=== PATIENT | male | born 1950 | race Caucasian/White ===

== ENCOUNTER → 2016-04-09 | Outpatient (CLI) | payer OTHER ==
[~2016-04-09] MED LIST: BISO5TAB5 PO; LEVA750T PO; NEXI40CA PO; PERC5TAB6 PO; PLAV75TA38 PO; PRAV40TA2 PO; TYLENOL #3; TYLENOL #3 ELIXIR; [UNRECOGNIZED DRUG - OTHER]
[2016-04-09 17:04] LABS: BLOOD UREA NITROGEN 19 MG/DL (7-18); CREATININE FOR GFR 1.03 MG/DL (0.70-1.30); GLOMERULAR FILTRATION RATE > 60.0 (>49)
== END ==
LOC: M WUC 14:18
PROVIDERS: ATTEND Surgery Vascular Surgery
DX: I65.23 Occlusion and stenosis of bilateral carotid arteries (principal)

== ENCOUNTER → 2016-04-18 | Outpatient (CLI) | payer OTHER ==
[~2016-04-18] MED LIST changes: +ISOVUE-370 76% 100ML VIAL (Q9967) As Ordered ONE
--- NOTE | 2016-04-18 09:41 | REP ---
CT ANGIO NECK: HISTORY: Carotid stenosis. CONTRAST: Isovue 370, 75 mL. Partially calcified atherosclerotic plaques are present at the origins of the right external and internal carotid arteries. There is mild stenosis of 20% of the right internal carotid artery at its origin. There is moderate stenosis of 50% of the right internal carotid artery 14 mm from its origin. There is no significant stenosis at the origin of the right external carotid artery. Partially calcified atherosclerotic plaques are present at the origins of the left external and internal carotid arteries. There is mild stenosis of 15% of the left internal carotid artery at its origin. There is mild stenosis of 25% of the left internal carotid artery 10 mm from its origin. There is moderate stenosis of 30% of the left external carotid artery at its origin. Calcified atherosclerotic plaques are present in the cavernous internal carotid arteries. These produce at least mild stenosis. Calcified atherosclerotic plaques are present in the distal vertebral arteries at the C1-2 level and at the craniovertebral junction. There is no significant stenosis. Calcified atherosclerotic plaques are present at the origins of the left common carotid and left subclavian arteries. There is no significant stenosis. IMPRESSION: 1. Mild stenosis of 20% of the right internal carotid artery at its origin. There is moderate stenosis of 50% of the right internal carotid artery 14 mm from its origin. 2. Mild stenosis of 15% of the left internal carotid artery at its origin. There is mild stenosis of 25% of the left internal carotid artery 10 mm from its origin. Signed by Senthil Sotomayor MD 04/18/2016 09:48 A
== END ==
LOC: M RAD 07:06
PROVIDERS: ATTEND Surgery Vascular Surgery
DX: I65.23 Occlusion and stenosis of bilateral carotid arteries (principal)
CPT/HCPCS: 70498; Q9967

== ENCOUNTER → 2016-06-26 | Outpatient (REF) | payer OTHER ==
[~2016-06-26] MED LIST changes: -ISOVUE-370 76% 100ML VIAL (Q9967) As Ordered ONE
[2016-06-26 13:13] LABS: BASO % 0.8 % (0.0-1.0); EOS # 0.2 K/mm3 (0.0-0.50); EOS % 4.4 % (0.0-3.0); LARGE UNSTAINED CELL # 0.1 K/mm3 (0.0-0.4); LYMPH # 1.4 K/mm3 (1.5-4.5); LYMPH % 23.3 % (24.0-44.0); MEAN CORPUSCULAR HEMOGLOBIN 32.3 pg (27.0-33.0); MEAN CORPUSCULAR HGB CONC 32.1 g/dl (32.0-36.5); MEAN CORPUSCULAR VOLUME 100.4 fl (80.0-96.0); MONO # 0.5 K/mm3 (0.0-0.8); MONO % 9.7 % (0.0-5.0); NEUTROPHILS # 3.2 K/mm3 (1.8-7.7); NEUTROPHILS % 59.7 % (36.0-66.0); PLATELET COUNT, AUTOMATED 171 k/mm3 (150-450); WHITE BLOOD COUNT 5.4 K/mm3 (4.0-10.0)
[2016-06-26 15:52] LABS: ALBUMIN 3.9 GM/DL (3.2-5.2); ALBUMIN/GLOBULIN RATIO 1.11 (1.00-1.93); ALKALINE PHOSPHATASE 125 U/L (45-117); ALT/SGPT 30 U/L (12-78); ANION GAP 9 MEQ/L (8-16); AST/SGOT 25 U/L (15-37); BILIRUBIN,TOTAL 0.7 MG/DL (0.2-1.0); BLOOD UREA NITROGEN 10 MG/DL (7-18); CALCIUM LEVEL 8.6 MG/DL (8.8-10.2); CARBON DIOXIDE LEVEL 27 MEQ/L (21-32); CHLORIDE LEVEL 104 MEQ/L (98-107); CHOLESTEROL LEVEL 159 MG/DL (<200); CREATININE FOR GFR 1.03 MG/DL (0.70-1.30); FERRITIN 129 NG/ML (26-388); GLOMERULAR FILTRATION RATE > 60.0 (>49); GLUCOSE, FASTING 91 MG/DL (80-110); PERCENT SATURATION 33.3 % (19.7-37.4); POTASSIUM SERUM 4.2 MEQ/L (3.5-5.1); SODIUM LEVEL 140 MEQ/L (136-145); TOTAL IRON BINDING CAPACITY 348 UG/DL (250-450); TOTAL PROTEIN 7.4 GM/DL (6.4-8.2); TRIGLYCERIDES LEVEL 77 MG/DL (<150)
== END ==
LOC: M SFHCPLAZ 08:41
PROVIDERS: ATTEND Family Medicine
DX: D51.9 Vitamin B12 deficiency anemia, unspecified (principal); E78.2 Mixed hyperlipidemia; R73.01 Impaired fasting glucose

== ENCOUNTER → 2016-11-17 | Outpatient (REF) | payer OTHER ==
[~2016-11-17] MED LIST changes: -LEVA750T PO; +LEVA750T7 PO; +PERC5TAB12 PO; -PERC5TAB6 PO; +PLAV1TAB2 PO; -PLAV75TA38 PO
[2016-11-17 12:59] LABS: BASO # 0.1 10^3/uL (0.0-0.2); BASO % 0.8 % (0.0-1.0); EOS # 0.3 10^3/uL (0.0-0.50); EOS % 4.5 % (0.0-3.0); LYMPH # 1.4 10^3/uL (1.5-4.5); LYMPH % 20.9 % (24.0-44.0); MEAN CORPUSCULAR HEMOGLOBIN 32.8 pg (27.0-33.0); MEAN CORPUSCULAR HGB CONC 33.4 g/dl (32.0-36.5); MEAN CORPUSCULAR VOLUME 98.3 fl (80.0-96.0); MONO # 0.6 10^3/uL (0.0-0.8); MONO % 9.9 % (0.0-5.0); NEUTROPHILS # 4.1 10^3/uL (1.8-7.7); NEUTROPHILS % 63.6 % (36.0-66.0); PLATELET COUNT, AUTOMATED 173 10^3/uL (150-450); WHITE BLOOD COUNT 6.5 10^3/uL (4.0-10.0)
== END ==
LOC: M SFHCPLAZ 08:23
PROVIDERS: ATTEND Family Medicine
DX: D51.9 Vitamin B12 deficiency anemia, unspecified (principal); E78.2 Mixed hyperlipidemia; R73.01 Impaired fasting glucose; Z12.5 Encounter for screening for malignant neoplasm of prostate
CPT/HCPCS: 36415; 80061; 82550; 82607; 83036; 85025; 86140; G0103

== ENCOUNTER → 2017-06-12 | Outpatient (CLI) | payer MEDICARE, OTHER ==
[2017-06-12 17:14] LABS: BLOOD UREA NITROGEN 14 MG/DL (7-18)
[2017-06-12 17:14] LABS: CREATININE FOR GFR 0.93 MG/DL (0.70-1.30); GLOMERULAR FILTRATION RATE > 60.0 (>49)
== END ==
LOC: M WUC 15:29
DX: I70.213 Atherosclerosis of native arteries of extremities with intermittent claudication, bilateral legs (principal)
CPT/HCPCS: 82565

== ENCOUNTER → 2017-06-24 | Outpatient (CLI) | payer MEDICARE, OTHER ==
[~2017-06-24] MED LIST changes: -BISO5TAB5 PO; +ISOVUE-370 76% 100ML VIAL (Q9967) As Ordered; -LEVA750T7 PO; -NEXI40CA PO; -PERC5TAB12 PO; -PLAV1TAB2 PO; -PRAV40TA2 PO; -TYLENOL #3; -TYLENOL #3 ELIXIR; -[UNRECOGNIZED DRUG - OTHER]
== END ==
LOC: M RAD 13:26
DX: I70.213 Atherosclerosis of native arteries of extremities with intermittent claudication, bilateral legs (principal)
CPT/HCPCS: Q9967

== ENCOUNTER → 2017-08-09 | Outpatient (CLI) | payer MEDICARE, OTHER ==
[2017-08-09 15:47] LABS: BASO # 0.1 10^3/uL (0.0-0.2); BASO % 1.3 % (0.0-1.0); EOS # 0.2 10^3/uL (0.0-0.50); HEMATOCRIT 45.1 % (42.0-52.0); IMMATURE GRANULOCYTE % 0.4 % (0-3.0); LYMPH # 1.2 10^3/uL (1.5-4.5); LYMPH % 26.5 % (24.0-44.0); MEAN CORPUSCULAR HEMOGLOBIN 32.6 pg (27.0-33.0); MEAN CORPUSCULAR HGB CONC 33.3 g/dl (32.0-36.5); MONO # 0.5 10^3/uL (0.0-0.8); MONO % 11.3 % (0.0-5.0); NEUTROPHILS # 2.6 10^3/uL (1.8-7.7); NEUTROPHILS % 55.5 % (36.0-66.0); PLATELET COUNT, AUTOMATED 161 10^3/uL (150-450); WHITE BLOOD COUNT 4.6 10^3/uL (4.0-10.0)
[2017-08-09 15:57] LABS: ANION GAP 4 MEQ/L (8-16); BLOOD UREA NITROGEN 14 MG/DL (7-18); CALCIUM LEVEL 8.9 MG/DL (8.8-10.2); CARBON DIOXIDE LEVEL 29 MEQ/L (21-32); CHLORIDE LEVEL 107 MEQ/L (98-107); CREATININE FOR GFR 0.98 MG/DL (0.70-1.30); GLOMERULAR FILTRATION RATE > 60.0 (>49); GLUCOSE, FASTING 111 MG/DL (70-100); INR 0.93; POTASSIUM SERUM 4.8 MEQ/L (3.5-5.1); PROTHROMBIN TIME 12.5 SECONDS (12.4-14.5); SODIUM LEVEL 140 MEQ/L (136-145)
== END ==
LOC: M WUC 09:23
DX: Z01.818 Encounter for other preprocedural examination (principal); I70.213 Atherosclerosis of native arteries of extremities with intermittent claudication, bilateral legs; D69.8 Other specified hemorrhagic conditions

== ENCOUNTER → 2017-08-09 | Outpatient (CLI) | payer MEDICARE, OTHER ==
[2017-08-09 15:46] LABS: BASO # 0.1 10^3/uL (0.0-0.2); BASO % 1.3 % (0.0-1.0); EOS # 0.2 10^3/uL (0.0-0.50); EOS % 4.4 % (0.0-3.0); HEMATOCRIT 45.8 % (42.0-52.0); HEMOGLOBIN 15.3 g/dl (13.5-17.5); IMMATURE GRANULOCYTE % 0.2 % (0-3.0); LYMPH # 1.1 10^3/uL (1.5-4.5); LYMPH % 24.8 % (24.0-44.0); MEAN CORPUSCULAR HEMOGLOBIN 32.7 pg (27.0-33.0); MEAN CORPUSCULAR HGB CONC 33.4 g/dl (32.0-36.5); MEAN CORPUSCULAR VOLUME 97.9 fl (80.0-96.0); MONO # 0.6 10^3/uL (0.0-0.8); MONO % 12.1 % (0.0-5.0); NEUTROPHILS # 2.6 10^3/uL (1.8-7.7); NEUTROPHILS % 57.2 % (36.0-66.0); PLATELET COUNT, AUTOMATED 166 10^3/uL (150-450); RED BLOOD COUNT 4.68 10^6/uL (4.30-6.10); WHITE BLOOD COUNT 4.6 10^3/uL (4.0-10.0)
[2017-08-09 15:51] LABS: HEMATOCRIT 45.8 % (42.0-52.0)
[2017-08-09 16:07] LABS: C REACTIVE PROTEIN QUANTITATIV 1.06 MG/DL (0.00-0.30); CHOLESTEROL LEVEL 144 MG/DL (<200); CHOLESTEROL RISK RATIO 3.428 (<5); CPK CREATINE PHOSPHOKINASE 100 U/L (39-308); ESTIMATED AVERAGE GLUCOSE 128 MG/DL (60-110); HDL CHOLESTEROL 42 MG/DL (>40); HEMOGLOBIN A1c 6.1 %; LDL CHOLESTEROL 88.6 MG/DL (<100); NON-HDL-C 102 MG/DL; TRIGLYCERIDES LEVEL 67 MG/DL (<150)
[2017-08-10 09:57] LABS: VITAMIN B12 LEVEL 274 PG/ML (247-911)
[2017-08-10 10:33] LABS: CONTROL LINE HPYORI INT CTR LINE PRESENT; H PYLORI QUALITATIVE IgG NEGATIVE (NEGATIVE)
[2017-08-11 11:21] LABS: PRETREATED FOLATE FOR RBCFOL 9.4 NG/ML
== END ==
LOC: M WUC 09:28
DX: Z01.818 Encounter for other preprocedural examination (principal); D51.9 Vitamin B12 deficiency anemia, unspecified; E78.2 Mixed hyperlipidemia; R73.01 Impaired fasting glucose; K21.9 Gastro-esophageal reflux disease without esophagitis; I70.213 Atherosclerosis of native arteries of extremities with intermittent claudication, bilateral legs; D69.8 Other specified hemorrhagic conditions
CPT/HCPCS: 82550

== ENCOUNTER → 2017-12-19 | Outpatient (CLI) | payer MEDICARE, OTHER ==
[2017-12-19 15:11] LABS: BASO # 0.1 10^3/uL (0.0-0.2); BASO % 0.8 % (0.0-1.0); EOS # 0.3 10^3/uL (0.0-0.50); EOS % 4.4 % (0.0-3.0); HEMATOCRIT 47.2 % (42.0-52.0); HEMOGLOBIN 15.9 g/dl (13.5-17.5); IMMATURE GRANULOCYTE % 0.3 % (0-3.0); LYMPH # 1.4 10^3/uL (1.5-4.5); MEAN CORPUSCULAR HEMOGLOBIN 33.5 pg (27.0-33.0); MEAN CORPUSCULAR HGB CONC 33.7 g/dl (32.0-36.5); MEAN CORPUSCULAR VOLUME 99.4 fl (80.0-96.0); MONO # 0.6 10^3/uL (0.0-0.8); MONO % 9.6 % (0.0-5.0); NEUTROPHILS # 3.6 10^3/uL (1.8-7.7); NEUTROPHILS % 60.9 % (36.0-66.0); PLATELET COUNT, AUTOMATED 165 10^3/uL (150-450); RED BLOOD COUNT 4.75 10^6/uL (4.30-6.10); RED CELL DISTRIBUTION WIDTH 12.6 % (11.5-14.5); RETIC HEMOGLOBIN EQUIVALENT 36.2 pg (24-36); RETICULOCYTE # 56.1 10^9/L (17-77); RETICULOCYTE % 1.2 % (0.5-1.5); WHITE BLOOD COUNT 5.9 10^3/uL (4.0-10.0)
[2017-12-19 15:14] LABS: APPEARANCE, URINE CLEAR (CLEAR); BACTERIA, URINE AUTO NEGATIVE (NEGATIVE); BILIRUBIN, URINE AUTO NEGATIVE (NEGATIVE); BLOOD, URINE BLOOD NEGATIVE (NEGATIVE); COLOR, URINE YELLOW (YELLOW); GLUCOSE, URINE (UA) AUTO NEGATIVE (NEGATIVE); KETONE, URINE AUTO NEGATIVE (NEGATIVE); LEUKOCYTE ESTERASE, URINE AUTO NEGATIVE (NEGATIVE); MUCUS, URINE SMALL (NEGATIVE); NITRITE, URINE AUTO NEGATIVE (NEGATIVE); PROTEIN, URINE AUTO NEGATIVE (NEGATIVE); RBC, URINE AUTO 2 /HPF (0-3); SPECIFIC GRAVITY URINE AUTO 1.016 (1.002-1.035); SQUAMOUS EPITHELIAL CELL UR AU 0 /HPF (0-6); UROBILINOGEN, URINE AUTO 0.2 mg/dL (0.0-2.0); WBC, URINE AUTO 0 /HPF (0-3)
[2017-12-19 15:20] LABS: ALBUMIN 4.1 GM/DL (3.2-5.2); ALBUMIN/GLOBULIN RATIO 1.14 (1.00-1.93); ALKALINE PHOSPHATASE 111 U/L (45-117); ALT/SGPT 27 U/L (12-78); ANION GAP 7 MEQ/L (8-16); AST/SGOT 21 U/L (7-37); BILIRUBIN,TOTAL 0.6 MG/DL (0.2-1.0); BLOOD UREA NITROGEN 12 MG/DL (7-18); CALCIUM LEVEL 9.3 MG/DL (8.8-10.2); CARBON DIOXIDE LEVEL 27 MEQ/L (21-32); CHLORIDE LEVEL 107 MEQ/L (98-107); CREATININE FOR GFR 0.87 MG/DL (0.70-1.30); GLOMERULAR FILTRATION RATE > 60.0 (>49); GLUCOSE, FASTING 105 MG/DL (70-100); POTASSIUM SERUM 4.9 MEQ/L (3.5-5.1); PSA SCREENING 0.18 NG/ML (< 4.0); SODIUM LEVEL 141 MEQ/L (136-145); TOTAL PROTEIN 7.7 GM/DL (6.4-8.2)
[2017-12-19 15:26] LABS: ESTIMATED AVERAGE GLUCOSE 128 MG/DL (60-110); HEMOGLOBIN A1c 6.1 %
[2017-12-19 16:03] LABS: MALB URINE SIEMENS 17.7 MG/L
[2017-12-19 16:08] LABS: MAU/CREAT RATIO 11.3 MCG/MG (0.0-30.0)
[2017-12-22 13:45] LABS: ALBUMIN 4.35 GM/DL (3.29-5.55); ALBUMIN % 56.5 % (55.8-66.1); ALPHA-1-GLOBULINS 0.39 GM/DL (0.17-0.41); ALPHA-2-GLOBULINS 0.74 GM/DL (0.42-0.99); ALPHA-2-GLOBULINS % 9.6 % (7.1-11.8); BETA-1-GLOBULINS 0.45 GM/DL (0.28-0.60); BETA-1-GLOBULINS % 5.8 % (4.7-7.2); BETA-2-GLOBULINS 0.35 GM/DL (0.19-0.55); BETA-2-GLOBULINS % 4.5 % (3.2-6.5); GAMMA GLOBULIN % 18.6 % (11.1-18.8); GAMMA GLOBULINS 1.43 GM/DL (0.65-1.58)
[2017-12-22 14:38] LABS: INSULIN LEVEL 15.8 uIU/mL (2.6-24.9)
== END ==
LOC: M WUC 10:27
DX: E53.8 Deficiency of other specified B group vitamins (principal); R73.01 Impaired fasting glucose; Z12.5 Encounter for screening for malignant neoplasm of prostate
CPT/HCPCS: 83525

== ENCOUNTER → 2018-06-19 | Outpatient (CLI) | payer MEDICARE, OTHER ==
[~2018-06-19] MED LIST changes: +BISO5TAB5 PO; -ISOVUE-370 76% 100ML VIAL (Q9967) As Ordered; +LEVA750T7 PO; +NEXI40CA PO; +PERC5TAB12 PO; +PLAV1TAB2 PO; +PRAV40TA2 PO; +TYLENOL #3; +TYLENOL #3 ELIXIR; +[UNRECOGNIZED DRUG - OTHER]
[2018-06-19 19:26] LABS: BASO # 0.1 10^3/uL (0.0-0.2); EOS # 0.3 10^3/uL (0.0-0.50); EOS % 4.5 % (0.0-3.0); HEMATOCRIT 47.9 % (42.0-52.0); HEMOGLOBIN 15.7 g/dl (13.5-17.5); LYMPH # 1.5 10^3/uL (1.5-4.5); LYMPH % 26.6 % (24.0-44.0); MEAN CORPUSCULAR HEMOGLOBIN 33.4 pg (27.0-33.0); MEAN CORPUSCULAR HGB CONC 32.8 g/dl (32.0-36.5); MEAN CORPUSCULAR VOLUME 101.9 fl (80.0-96.0); MONO # 0.5 10^3/uL (0.0-0.8); NEUTROPHILS # 3.4 10^3/uL (1.8-7.7); NEUTROPHILS % 59.4 % (36.0-66.0); PLATELET COUNT, AUTOMATED 183 10^3/uL (150-450); WHITE BLOOD COUNT 5.7 10^3/uL (4.0-10.0)
[2018-06-19 19:38] LABS: HEMATOCRIT 47.9 % (42.0-52.0)
[2018-06-19 19:39] LABS: CHOLESTEROL RISK RATIO 4.142 (<5); FREE T4 1.01 NG/DL (0.76-1.46); THYROID STIMULATING HORMONE 1.15 uIU/ML (0.358-3.740)
[2018-06-19 20:34] LABS: HEMOGLOBIN A1c 6.2 %
[2018-06-21 09:37] LABS: TOTAL 25(OH) VITAMIN D 18.8 NG/ML (30.0-100.0)
== END ==
LOC: M WUC 09:15
PROVIDERS: ATTEND Family Medicine
DX: E53.8 Deficiency of other specified B group vitamins (principal); E78.2 Mixed hyperlipidemia; R73.01 Impaired fasting glucose; E55.9 Vitamin D deficiency, unspecified

== ENCOUNTER → 2018-07-06 | Outpatient (CLI) | payer MEDICARE, OTHER ==
--- NOTE | 2018-07-06 09:12 | REP ---
Low-dose lung screening CT: The study is performed without IV contrast. Images are presented at lung windowing only. Comparisons are 11/08/2015, 02/10/2011 and 04/12/2009. No lung nodules or masses are identified. This is unchanged from the comparison studies. There are curvilinear densities in the right middle lobe, unchanged from 04/12/2009, compatible with chronic parenchymal scarring. The bilateral infiltrates identified on 11/08/2015 have resolved. There are no new acute infiltrates. There are numerous bulla throughout the lung dennis bilaterally, unchanged. The the patient has a known stable left adrenal nodule. This is not optimally demonstrated on the study today with images presented at lung windowing only. Impression: There are no lung nodules or masses. There is chronic stable parenchymal scarring in the right middle lobe, unchanged. The previous bilateral infiltrates have resolved. Known stable left adrenal nodule, suboptimally demonstrated on the study today. Numerous chronic bulla bilaterally. Category one low-dose lung screening CT. The probability of malignancy is less than 1%. Depending on risk factors, follow-up annual low-dose lung screening CT is recommended. Electronically Signed by Luis Tsang MD 07/06/2018 09:03 A
== END ==
LOC: M RAD 07:44
PROVIDERS: ATTEND Family Medicine
DX: Z12.2 Encounter for screening for malignant neoplasm of respiratory organs (principal); R91.1 Solitary pulmonary nodule; E27.9 Disorder of adrenal gland, unspecified; Z87.891 Personal history of nicotine dependence

== ENCOUNTER 2018-08-10 21:51 | Emergency (ER) | payer MEDICARE, OTHER ==
[~2018-08-10] VITALS: Ht 172.7 cm; Wt 79.0 kg
[2018-08-10] MEDS ORDERED: NITROGLYCERIN 0.4 MG SUBL TABLET As Ordered ONE (22:07)
[2018-08-10] MEDS: NITROGLYCERIN 0.4 MG SUBL TABLET SL PRN ×3 (22:08→22:50)
[2018-08-10] MEDS ORDERED: ASPIRIN 81 MG CHEW TABLET PO ONE (22:15)
[2018-08-10 22:22] LABS: BASO # 0.1 10^3/uL (0.0-0.2); BASO % 1.3 % (0.0-1.0); EOS # 0.2 10^3/uL (0.0-0.50); EOS % 3.2 % (0.0-3.0); HEMATOCRIT 44.1 % (42.0-52.0); HEMOGLOBIN 14.8 g/dl (13.5-17.5); LYMPH # 2.3 10^3/uL (1.5-4.5); LYMPH % 33.5 % (24.0-44.0); MEAN CORPUSCULAR HEMOGLOBIN 33.7 pg (27.0-33.0); MEAN CORPUSCULAR HGB CONC 33.6 g/dl (32.0-36.5); MEAN CORPUSCULAR VOLUME 100.5 fl (80.0-96.0); MONO # 0.7 10^3/uL (0.0-0.8); MONO % 9.6 % (0.0-5.0); NEUTROPHILS # 3.6 10^3/uL (1.8-7.7); PLATELET COUNT, AUTOMATED 162 10^3/uL (150-450); RED BLOOD COUNT 4.39 10^6/uL (4.30-6.10); WHITE BLOOD COUNT 6.9 10^3/uL (4.0-10.0)
[2018-08-10] MEDS ORDERED: HEPARIN DRIP 25,000 UNITS in APPROPRIATE DILUENT 1 EA IV SCH (22:31)
[2018-08-10 22:32] LABS: INR 1.01; PROTHROMBIN TIME 13.4 SECONDS (12.1-14.4)
[2018-08-10 22:33] LABS: PARTIAL THROMBOPLASTIN TIME 27.7 SECONDS (25.4-37.6)
[2018-08-10] MEDS ORDERED: HEPARIN SOD (PORCINE) 5000 UNITS/ML VIAL IV ONE (22:45)
[2018-08-10 22:50] VITALS: BP 138/70
[2018-08-10 22:51] LABS: ALBUMIN 3.6 GM/DL (3.2-5.2); ALT/SGPT 26 U/L (12-78); BILIRUBIN,DIRECT 0.1 MG/DL (0.0-0.2); BILIRUBIN,TOTAL 0.4 MG/DL (0.2-1.0); BLOOD UREA NITROGEN 16 MG/DL (7-18); CALCIUM LEVEL 8.8 MG/DL (8.8-10.2); CARBON DIOXIDE LEVEL 26 MEQ/L (21-32); CHLORIDE LEVEL 110 MEQ/L (98-107); CK-MB VALUE MASS 1.4 NG/ML (<3.6); CPK CREATINE PHOSPHOKINASE 94 U/L (39-308); CREATININE FOR GFR 1.03 MG/DL (0.70-1.30); GLOMERULAR FILTRATION RATE > 60.0 (>49); GLUCOSE, FASTING 129 MG/DL (70-100); LIPASE 272 U/L (73-393); MB/CK RELATIVE INDEX 1.49 (< OR =4); POTASSIUM SERUM 3.8 MEQ/L (3.5-5.1); SODIUM LEVEL 142 MEQ/L (136-145); TOTAL PROTEIN 7.2 GM/DL (6.4-8.2)
[2018-08-10 23:35] VITALS: BP 152/69
--- NOTE | 2018-08-11 07:44 | REP ---
Portable chest, 10:14 p.m., single AP view with the patient upright: Comparison is 11/16/2015. The lung dennis are clear. The cardiac size is normal. The sydnie, mediastinum, and skeletal structures are unremarkable. Impression: Negative portable chest. No interval change. Electronically Signed by Luis Tsang MD 08/11/2018 07:36 A
--- NOTE | 2018-08-11 19:24 | ECGEPIP ---
[facility] - ED Test Date: 2018-08-10 Pat Name: JESSICA GONZALES Department: Room: - Gender: Male Supervisor Tower: [facility] : 1950 Requested By: STEFANI Begum Order Number: [id number] Reading MD: Elly Romo Measurements Intervals [place] Rate: 53 P: 64 GA: 174 QRS: 31 QRSD: 118 T: 8 QT: 410 QTc: 388 Interpretive Statements SINUS BRADYCARDIA INCOMPLETE RIGHT BUNDLE BRANCH BLOCK ST DEPRESSION, CONSIDER SUBENDOCARDIAL INJURY COMPARED 11/09/15 CLINICAL CORRELATION Electronically Signed on 08-11-2018 19:24:51 EDT by Elly Romo
== END 2018-08-10 23:39 | disposition short-term general hospital (02) ==
LOC: M ED 21:51
DX: I24.9 Acute ischemic heart disease, unspecified (principal); I21.9 Acute myocardial infarction, unspecified; I25.10 Atherosclerotic heart disease of native coronary artery without angina pectoris; R00.1 Bradycardia, unspecified; I10 Essential (primary) hypertension; E78.5 Hyperlipidemia, unspecified; J44.9 Chronic obstructive pulmonary disease, unspecified; C18.9 Malignant neoplasm of colon, unspecified; F17.210 Nicotine dependence, cigarettes, uncomplicated; Z79.02 Long term (current) use of antithrombotics/antiplatelets; Z79.891 Long term (current) use of opiate analgesic; Z91.030 Bee allergy status; Z91.041 Radiographic dye allergy status; Z95.820 Peripheral vascular angioplasty status with implants and grafts

== ENCOUNTER → 2018-08-23 | Outpatient (REF) | payer MEDICARE, OTHER ==
[2018-08-23 13:29] LABS: BASO # 0.1 10^3/uL (0.0-0.2); BASO % 1.4 % (0.0-1.0); EOS # 0.3 10^3/uL (0.0-0.50); EOS % 4.5 % (0.0-3.0); HEMATOCRIT 46.4 % (42.0-52.0); HEMOGLOBIN 15.3 g/dl (13.5-17.5); LYMPH # 1.8 10^3/uL (1.5-4.5); LYMPH % 31.6 % (24.0-44.0); MONO # 0.7 10^3/uL (0.0-0.8); MONO % 11.9 % (0.0-5.0); NEUTROPHILS # 2.9 10^3/uL (1.8-7.7); NEUTROPHILS % 50.1 % (36.0-66.0); PLATELET COUNT, AUTOMATED 188 10^3/uL (150-450); RED BLOOD COUNT 4.64 10^6/uL (4.30-6.10); WHITE BLOOD COUNT 5.8 10^3/uL (4.0-10.0)
== END ==
LOC: M SFHCPLAZ 11:22
PROVIDERS: ATTEND Family Medicine
DX: D75.89 Other specified diseases of blood and blood-forming organs (principal)

== ENCOUNTER → 2018-11-22 | Outpatient (RCR) | payer MEDICARE, OTHER ==
--- NOTE | 2018-10-29 09:19 | CARECAPL ---
Assessment Account #s: Initial Assessment General Diagnoses: CABG Date of event: Sep 17, 2018 Physician: Alexandre Quinteros MD Allergies: Coded Allergies: Chantix (Verified Allergy, Intermediate, 10/29/18) causes aggressive behavior Contrast Media (Verified Allergy, Intermediate, HIVES, 08/10/18) bee venom protein (honey bee) (Verified Allergy, Unknown, 08/10/18) Date Entered Program: Oct 29, 2018 Risk strat for cardiac event: High Exercise Stages of change: Contemplate Exercise Prescription Plan educate on Cardiovascular disease and increase endurance, strength and flexibility through monitored exercise. Modalities initiated: Treadmill (will add speed 2.0 for 10 minutes), Nustep (will add Level One for 10 minutes), Arm Aerometer (will add resistance of 1 for 8 minutes), Dumbells (will add 1lb weights 2 sets for 10 reps), Recumbent Bike (will add resistance of 1 for 5 minutes) Frequency: 2-3 Duration (Minutes) 30 - 60 minutes total exercise a day. 15 - 20 work intervals in minutes. PRN rest intervals in minutes. Functional Capacity Goal Sustained Metabolic Equivalent of a task (MET) goal of 2.5-3.5 for 15-20 minutes. Intensity: 3-Moderate Progression (METS) Increase by: 0.5 METS every: 3-5 sessions Target Heart Rate rest +35-40 per beta travon therapy Resistance Training: Yes Weight (pounds): 1 Reps: 8-12 Medications Scheduled Aspirin (Aspir 81), 81 MG PO DAILY, (Reported) Clopidogrel Bisulfate (Plavix), 75 MG PO QPM, (Reported) Cyanocobalamin (Vitamin B-12) (Vitamin B-12), 1 TAB PO DAILY, (Reported) Esomeprazole Magnesium (Nexium), 40 MG PO QPM, (Reported) Ferrous Sulfate (Iron), 1 TAB PO DAILY, (Reported) Folic Acid (Folic Acid), 1 TAB PO DAILY, (Reported) Metformin HCl (Metformin HCl), 1 TAB PO DAILY, (Reported) Metoprolol Succinate (Metoprolol Succinate), 25 MG PO DAILY, (Reported) Rosuvastatin Calcium (Rosuvastatin Calcium), 1 TAB PO DAILY, (Reported) Discontinued Medications Bisoprolol Fumarate (Bisoprolol Fumarate), 2.5 MG PO QPM, (Reported) Discontinued Reason: Pt states not taking Levofloxacin (Levaquin), 750 MG PO DAILY@06 Discontinued Reason: Pt states not taking Oxycodone HCl/Acetaminophen (Percocet 5-325 mg Tablet), 1 TAB PO Q6H PRN for PAIN, (Reported) Discontinued Reason: Pt states not taking Pravastatin Sodium (Pravastatin Sodium), 40 MG PO QPM, (Reported) Discontinued Reason: Pt states not taking Intervention Home exercise: Type (walking 2 miles), Frequency (5 times a week) Target Goals Individual exercise Rx (1) BP 140/90 or 130/80 if DM or CKD (1) Aerobic active 30+min 5 days per week (1) Nutrition Date: Oct 29, 2018 Assessment: Initial Assessment Lipids Total Cholesterol (136), High Density Lipids (HDL) (39), Low Density Lipids (LDL) (92), Triglycerides (113), Lipid med/supplement (Crestor) Lipid- med/supplement Crestor Diabetes Diabetes: Yes Fasting Blood Sugar: 90 HbA1c (%): 6.2 Diabetes medication Metformin Monitor Blood Sugar at home: Yes Frequency Daily Weight Management Weight (lbs): 158.8 Height (inches): 68 Waist Circumference (Inches): 32 BMI: 24.02 Special Diet: low salt Vitamin/Supplements: Other (iron and folic acid) Alcohol: none Diet Access Tool: Rate your plate Score: 26 Intervention Alarm Signaler Consult: No Nurse/patient discussion: No Dietary Goals Healthier food choices Diet Class: No Referral to Diabetes education: No Referral to lipid clinic: No Referral to weight mangement p: No Target goal LDL-C<100 if triglycerides are >200 Non-HDL-C should be <130 (1) LDL-C<70 for high risk patients (4) HbA1c<7% (1) BMI<25 Waist cir<40in M/<35in F (1) Education Date: Oct 29, 2018 Assessment: Initial Assessment Learning Barriers: hearing (hard of hearing) Knowledge Test Score: 10 Stages of change: Contemplate Family Support: Yes Tobacco use: No Quit: <6 months ( started 40+ years ago) Tobacco Use Date quit: Aug 11, 2018 Smokeless tobacco: No Intervention Referral to smoking cessation: Yes Individual education and couns: No Tobacco Adjunct: No Education class schedule given: No Attended education classes: No Target Goals Complete cessation of tobacco use (1). Psychosocial Date: Oct 29, 2018 Assessment: Initial Assessment Psych Test (Initial/Discharge) Tool Used: Other (depression screening) Score: 1 Intervention Physician Consult: No Physician Referral: No (Dr. Aranda notified of depression screening) Psychotropic medication None Target Goal Assess presence or absence of depression using a valid screening tool (1). Maximize coping skills (2). Positive support system (2). Patient/Program Goal Preventative Medication: Yes Aspirin, Yes Clopidogrel, Yes Beta blockade, Yes Statin/OTR lipid Lowering Fall Risk Assess: Yes (no fall risk) Provider Assessment Provider Assessment: Proceed with rehab Gladis Benitez RN Oct 29, 2018 09:19
[~2018-11-22] MED LIST changes: +ASPI81TA85 PO; +B-12100T2 PO; -BISO5TAB5 PO; +BISO5TAB9 PO; +FOLI1TAB11 PO; +IRON325T9 PO; +METF500T13 PO; +METO1TAB32 PO; +ROSU40TA4 PO
--- NOTE | 2018-11-22 11:14 | CARECAPL ---
Assessment Account #s: Re-Assessment I General Diagnoses: CABG Date of event: Sep 17, 2018 Physician: Alexandre Quinteros MD Allergies: Coded Allergies: Contrast Media (Verified Allergy, Intermediate, HIVES, 08/10/18) varenicline (Verified Allergy, Intermediate, 10/29/18) causes aggressive behavior bee venom protein (honey bee) (Verified Allergy, Unknown, 08/10/18) Date Entered Program: Oct 29, 2018 Exercise Date: Nov 22, 2018 Assessment: Re-Assessment I Stages of change: Contemplate Exercise Prescription Plan educate on cardiovascular disease and increase endurance, flexibility and strength through monitored exercise program. Modalities initiated: Cardio-Strider (resistance of 3 for 15 minutes mets 2.6 RPE 2.5), Nustep (resistance of 4 for 15 minutes mets 3.1 RPE 2.5), Arm Aerometer (resistance of 4.5 for 10 minutes mets 4.5 rpe 3), Dumbells (7lbs 1 set 15 reps. RPE 2.5) Frequency: 3 Duration (Minutes) 30 - 60 minutes total exercise a day. 15 - 20 work intervals in minutes. PRN rest intervals in minutes. Functional Capacity Goal Sustained Metabolic Equivalent of a task (MET) goal of 4.5-5.5 for 15-20 minutes. Intensity: 3-Moderate Progression (METS) Increase by: 0.5 METS every: 3-5 sessions Angina with ex: No Target Heart Rate rest + 35-40 per beta travon therapy. Resistance Training: Yes Weight (pounds): 7 Reps: 12-15 Hypertension: Yes Hypertension controlled with: Medication Resting 146/90 Peak Exercise BP 170/100 Meds metoprolol succinate Medications Scheduled Aspirin (Aspir 81), 81 MG PO DAILY, (Reported) Clopidogrel Bisulfate (Plavix), 75 MG PO QPM, (Reported) Cyanocobalamin (Vitamin B-12) (Vitamin B-12), 1 TAB PO DAILY, (Reported) Esomeprazole Magnesium (Nexium), 40 MG PO QPM, (Reported) Ferrous Sulfate (Iron), 1 TAB PO DAILY, (Reported) Folic Acid (Folic Acid), 1 TAB PO DAILY, (Reported) Metformin HCl (Metformin HCl), 1 TAB PO DAILY, (Reported) Metoprolol Succinate (Metoprolol Succinate), 25 MG PO DAILY, (Reported) Rosuvastatin Calcium (Rosuvastatin Calcium), 1 TAB PO DAILY, (Reported) Current BP 146/90 Med Change: No Intervention Education: Self pulse (Patient able to take pulse independently.), Ex safety (patient described drink plenty of water and comfortable clothing. ), S/S to report (Patient reports chest pain, excessive sweating and n/v to MD.), Low NA diet (patient verbalized no canned vegetables or frozen vegetables with additives. ), BP medication (Patient was able to describe the purpose of metoprolol ex. lower bp and reduce pulse. ), RPE Scale (uses independently), Equipment orientation (very little verbal cueing with equipment), warm up/cool down (independently completes), Understand BP (Discussed low sodium diet and exercise to decrease BP.), Physical Active (Patient stated to stay physical active to help with BP, HDL and to increase endurance. ) Education Goals Met: No (will continue to reinforce education.) Target Goals Individual exercise Rx (1) BP 140/90 or 130/80 if DM or CKD (1) Aerobic active 30+min 5 days per week (1) Nutrition Date: Nov 22, 2018 Assessment: Re-Assessment I Stages of change: Contemplate Med Change: No Medication Change: No Random Blood Sugar: 113 Current Weight (pounds): 161 Weight Goal at goal weight. 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 Diet Class: Yes Education S&S hypo/hyper glycemia (patient able to describe sweating, hunger and malasie as hypo. he described excessive thirst, frequent urination and blurred vision as hyperglycemia ), Relate Diabetes in CAD (patient stated that uncontrolled glucoses can cause arteries to block. ), Eating Healthy (patient described eating whole grains, fruits and vegetables to eat healthy. ) Education Goals Met: No (will continue to reinforce education.) Target goal LDL-C<100 if triglycerides are >200 Non-HDL-C should be <130 (1) LDL-C<70 for high risk patients (4) HbA1c<7% (1) BMI<25 Waist cir<40in M/<35in F (1) Education Date: Nov 22, 2018 Assessment: Re-Assessment I Stages of change: Contemplate Family Support: Yes Intervention Education: tobacco triggers (tobacco triggers are smelling of smoke, behaviors such as smoking after a meal. ), CAD (patient describes how smoking increase CAD by constricting blood vessels.), Risk factors (patient stated risk factors of smoking, over weight and sedentary life style risk factors for CAD.), med compliance (patient states he should take his medication as prescribed to low the risk of CAD.), cardiac A&P (patient was able to explain how the chambers in the heart work. ), Angina S/S (patient described chest pain while exercising and stops during rest is angina. ), Sexuality (patient states no sex until released by MD. ) Education Goals Met: No (will continue to reinforce education.) Target Goals Complete cessation of tobacco use (1). Psychosocial Date: Nov 22, 2018 Assessment: Re-Assessment I Stages of change: Contemplate Med Change: No Stress Management Class: Yes Uses Stress Management Skills: Yes Education Education: Coping Techniques (patient describes being able to talk to about his concerns.), S/S depression (patient states withdrawal, loss of appetite and crying s/s of depression.), Relaxation Techniques (patient states he will listen to music or watch tv for relaxation. ) Education Goals Met: No (will continue to reinforce education.) Target Goal Assess presence or absence of depression using a valid screening tool (1). Maximize coping skills (2). Positive support system (2). Patient/Program Goal Preventative Medication: Yes Aspirin, Yes Clopidogrel, Yes Beta blockade, Yes Statin/OTR lipid Lowering Fall Risk Assess: Yes (no fall risk) Provider Assessment Session Number: 9 Provider Assessment: Proceed with rehab Gladis Benitez RN Nov 22, 2018 11:14
== END ==
LOC: M CR 10-29 08:02
PROVIDERS: ATTEND Internal Medicine Cardiovascular Disease
DX: Z95.1 Presence of aortocoronary bypass graft (principal)

== ENCOUNTER 2018-12-22 10:06 | Outpatient (RCR) | payer MEDICARE, OTHER ==
--- NOTE | 2018-12-15 17:07 | CARECAPL ---
Assessment Account #s: Re-Assessment II General Diagnoses: CABG Date of event: Sep 17, 2018 Physician: Alexandre Quinteros MD Allergies: Coded Allergies: Contrast Media (Verified Allergy, Intermediate, HIVES, 08/10/18) varenicline (Verified Allergy, Intermediate, 10/29/18) causes aggressive behavior bee venom protein (honey bee) (Verified Allergy, Unknown, 08/10/18) Date Entered Program: Oct 29, 2018 Risk strat for cardiac event: Low Exercise Date: Dec 15, 2018 Assessment: Re-Assessment II Stages of change: Contemplate Exercise Prescription Plan TO EDUCATE AND BUILD ENDURANCE THROUGH MONITORED EXERCISE Modalities initiated: Cardio-Strider (METS=2.6/RPE=3), Nustep (METS=4.3/RPE=3.5), Arm Aerometer (METS=3.4/RPE=3), Dumbells (10#/RPE=3) Frequency: 3 Duration (Minutes) 30 - 60 minutes total exercise a day. 15 - 20 work intervals in minutes. PRN rest intervals in minutes. Functional Capacity Goal Sustained Metabolic Equivalent of a task (MET) goal of 4.5-5.5 for 15-20 minutes. Intensity: 3-Moderate Progression (METS) Increase by: 0.5 METS every: 5 sessions TOLERATED Angina with ex: No Target Heart Rate REST +35-40 PER BETA BRANDIE THERAPY Resistance Training: Yes Weight (pounds): 10 Reps: 12-15 Hypertension: Yes Hypertension controlled with: Medication (METOPROLOL) Resting 120/80 Peak Exercise BP 150/80 Medications Scheduled Aspirin (Aspir 81), 81 MG PO DAILY, (Reported) Bisoprolol Fumarate (Bisoprolol Fumarate), 5 MG PO DAILY, (Reported) Clopidogrel Bisulfate (Plavix), 75 MG PO QPM, (Reported) Cyanocobalamin (Vitamin B-12) (Vitamin B-12), 1 TAB PO DAILY, (Reported) Esomeprazole Magnesium (Nexium), 40 MG PO QPM, (Reported) Ferrous Sulfate (Iron), 1 TAB PO DAILY, (Reported) Folic Acid (Folic Acid), 1 TAB PO DAILY, (Reported) Metformin HCl (Metformin HCl), 1 TAB PO DAILY, (Reported) Metoprolol Succinate (Metoprolol Succinate), 25 MG PO DAILY, (Reported) Rosuvastatin Calcium (Rosuvastatin Calcium), 1 TAB PO DAILY, (Reported) Current BP 120/86 Med Change: No Intervention Home exercise: Type (WALKING,HAND WEIGHTS, JOIN LOCAL GYM), Frequency (3-5 DAYS PER WEEK), Duration (30-60 MINUTES) Resistance Training: Yes Education: Self pulse (SEE EDUCATION COMPLETED ON PRIOR ITP) Education Goals Met: No (PROGRESSING TOWARD GOALS) Target Goals Individual exercise Rx (1) BP 140/90 or 130/80 if DM or CKD (1) Aerobic active 30+min 5 days per week (1) Nutrition Date: Dec 15, 2018 Assessment: Re-Assessment II Stages of change: Contemplate Lipid- med/supplement ROSUVASTATIN Med Change: No Diabetes Diabetes: Yes Fasting Blood Sugar: 111 Diabetes medication METFORMIN Monitor Blood Sugar at home: Yes Medication Change: No Random Blood Sugar: 111 Blood sugar in range: Yes Weight Management Weight (lbs): 164.6 Special Diet: low salt, low-fat Vitamin/Supplements: Vitamin B Current Weight (pounds): 164.6 Intervention Research Contracts Supervisor Consult: No Nurse/patient discussion: Yes Dietary Goals IMPROVE DIET WITH HEART HEALTHY CHOICES AND SMALLER PORTIONS Diet Class: Yes (MET WITH DEMO COORDINATOR 11/15/2018) Referral to Diabetes education: No Referral to lipid clinic: No Referral to weight mangement p: No Education Goals Met: No (SEE EDUCATION ON PRIOR ITP, PROGRESSING TOWARD GOALS) Target goal LDL-C<100 if triglycerides are >200 Non-HDL-C should be <130 (1) LDL-C<70 for high risk patients (4) HbA1c<7% (1) BMI<25 Waist cir<40in M/<35in F (1) Education Date: Dec 15, 2018 Assessment: Re-Assessment II Learning Barriers: ready Stages of change: Contemplate Family Support: Yes Tobacco use: No Quit: <6 months Tobacco Use Smokeless tobacco: No Intervention Referral to smoking cessation: No Individual education and couns: No Tobacco Adjunct: No Education class schedule given: No Attended education classes: No Education Goals Met: No (SEE EDUCATION ON PRIOR ITP, PROGRESSING TOWARD GOALS) Target Goals Complete cessation of tobacco use (1). Psychosocial Date: Dec 15, 2018 Assessment: Re-Assessment II Stages of change: Contemplate Intervention Physician Consult: No Physician Referral: No Med Change: No Stress Management Class: No Uses Stress Management Skills: Yes Education Goals Met: Yes (PROGRESSING TOWARD GOALS, WILL CONTINUE TO REINFORCE) Target Goal Assess presence or absence of depression using a valid screening tool (1). Maximize coping skills (2). Positive support system (2). Patient/Program Goal Preventative Medication: Yes Aspirin, Yes Clopidogrel, Yes Beta blockade, Yes Statin/OTR lipid Lowering Fall Risk Assess: Yes (NOT A FALL RISK) Provider Assessment Session Number: 19 Provider Assessment: Proceed with rehab (PATIENT HAS EXCELLENT ATTENDENCE AND IS RECEPTIVE TO EDUCATION OFFERED) Martínez Marroquin RN Dec 15, 2018 16:51
== END 2018-12-23 ==
LOC: M CR 10:06
PROVIDERS: ATTEND Internal Medicine Cardiovascular Disease
DX: Z95.1 Presence of aortocoronary bypass graft (principal)

== ENCOUNTER → 2018-12-27 | Outpatient (CLI) | payer MEDICARE, OTHER ==
[2018-12-27 08:49] LABS: BASO # 0.1 10^3/uL (0.0-0.2); BASO % 1.3 % (0.0-1.0); EOS # 0.2 10^3/uL (0.0-0.5); EOS % 5.1 % (0.0-3.0); HEMATOCRIT 39.6 % (42.0-52.0); HEMOGLOBIN 12.7 g/dl (13.5-17.5); LYMPH # 1.3 10^3/uL (1.5-5.0); LYMPH % 27.8 % (24.0-44.0); MEAN CORPUSCULAR HEMOGLOBIN 32.8 pg (27.0-33.0); MEAN CORPUSCULAR HGB CONC 32.1 g/dl (32.0-36.5); MEAN CORPUSCULAR VOLUME 102.3 fl (80.0-96.0); MONO # 0.6 10^3/uL (0.0-0.8); MONO % 11.8 % (0.0-5.0); NEUTROPHILS # 2.6 10^3/uL (1.5-8.5); NEUTROPHILS % 53.8 % (36.0-66.0); PLATELET COUNT, AUTOMATED 171 10^3/uL (150-450); RED BLOOD COUNT 3.87 10^6/uL (4.30-6.10); WHITE BLOOD COUNT 4.8 10^3/uL (4.0-10.0)
[2018-12-27 08:54] LABS: APPEARANCE, URINE CLEAR (CLEAR); BACTERIA, URINE AUTO NEGATIVE (NEGATIVE); BILIRUBIN, URINE AUTO NEGATIVE (NEGATIVE); BLOOD, URINE BLOOD NEGATIVE (NEGATIVE); COLOR, URINE YELLOW (YELLOW); GLUCOSE, URINE (UA) AUTO NEGATIVE (NEGATIVE); KETONE, URINE AUTO NEGATIVE (NEGATIVE); LEUKOCYTE ESTERASE, URINE AUTO NEGATIVE (NEGATIVE); MUCUS, URINE SMALL (NEGATIVE); NITRITE, URINE AUTO NEGATIVE (NEGATIVE); PROTEIN, URINE AUTO NEGATIVE (NEGATIVE); RBC, URINE AUTO 2 /HPF (0-3); SQUAMOUS EPITHELIAL CELL UR AU 0 /HPF (0-6); WBC, URINE AUTO 1 /HPF (0-3)
[2018-12-27 09:24] LABS: ALBUMIN 3.6 GM/DL (3.2-5.2); ALT/SGPT 18 U/L (12-78); BILIRUBIN,TOTAL 0.6 MG/DL (0.2-1.0); BLOOD UREA NITROGEN 15 MG/DL (7-18); CALCIUM LEVEL 8.8 MG/DL (8.8-10.2); CARBON DIOXIDE LEVEL 27 MEQ/L (21-32); CHLORIDE LEVEL 110 MEQ/L (98-107); CHOLESTEROL LEVEL 93 MG/DL (<200); CHOLESTEROL RISK RATIO 2.214 (<5); CREATININE FOR GFR 0.95 MG/DL (0.70-1.30); GLOMERULAR FILTRATION RATE > 60.0 (>49); GLUCOSE, FASTING 98 MG/DL (70-100); HDL CHOLESTEROL 42 MG/DL (>40); LDL CHOLESTEROL 39 MG/DL (<100); NON-HDL-C 51 MG/DL; POTASSIUM SERUM 4.5 MEQ/L (3.5-5.1); SODIUM LEVEL 142 MEQ/L (136-145); TOTAL PROTEIN 7.2 GM/DL (6.4-8.2); TRIGLYCERIDES LEVEL 62 MG/DL (<150)
[2018-12-27 09:40] LABS: MALB URINE SIEMENS 91.9 MG/L; MAU/CREAT RATIO 41.9 MCG/MG (0.0-30.0)
[2018-12-27 12:29] LABS: VITAMIN B12 LEVEL 444 PG/ML (247-911)
== END ==
LOC: M LAB 07:50
PROVIDERS: ATTEND Family Medicine
DX: R73.01 Impaired fasting glucose (principal); E78.2 Mixed hyperlipidemia; E53.8 Deficiency of other specified B group vitamins

== ENCOUNTER 2019-01-19 10:24 | Outpatient (RCR) | payer MEDICARE, OTHER ==
--- NOTE | 2019-01-03 13:55 | CARECAPL ---
Assessment Account #s: Re-Assessment II (III) General Diagnoses: CABG Date of event: Sep 17, 2018 Physician: Ze Haji Allergies: Coded Allergies: Contrast Media (Verified Allergy, Intermediate, HIVES, 08/10/18) varenicline (Verified Allergy, Intermediate, 10/29/18) causes aggressive behavior bee venom protein (honey bee) (Verified Allergy, Unknown, 08/10/18) Date Entered Program: Oct 29, 2018 Risk strat for cardiac event: Moderate Exercise Date: Jan 03, 2019 Assessment: Re-Assessment II (III) Stages of change: action Exercise Prescription Modalities initiated: Cardio-Strider (R5 MTS 3.8 RPE 3 20 MINUTES), Nustep (L10 MTS 4.3 RPE 3.5 20 MINUTES), Arm Aerometer (7.0 MTS 3.6 RPE 3), Dumbells, Recumbent Bike (7 MINUTES, MTS 2.6 RPE 3 R1) Duration (Minutes) 30 - 60 minutes total exercise a day. 15 - 20 work intervals in minutes. PRN rest intervals in minutes. Functional Capacity Goal Sustained Metabolic Equivalent of a task (MET) goal of for minutes. Progression (METS) Increase by: METS every: sessions Angina with ex: No Resistance Training: Yes Weight (pounds): 10 Reps: 8-12 Hypertension: Yes Hypertension controlled with: Medication Resting 160/90 Peak Exercise BP 180/100 Meds SEE BELOW Medications Scheduled Aspirin (Aspir 81), 81 MG PO DAILY, (Reported) Bisoprolol Fumarate (Bisoprolol Fumarate), 5 MG PO DAILY, (Reported) Clopidogrel Bisulfate (Plavix), 75 MG PO QPM, (Reported) Cyanocobalamin (Vitamin B-12) (Vitamin B-12), 1 TAB PO DAILY, (Reported) Esomeprazole Magnesium (Nexium), 40 MG PO QPM, (Reported) Ferrous Sulfate (Iron), 1 TAB PO DAILY, (Reported) Folic Acid (Folic Acid), 1 TAB PO DAILY, (Reported) Metformin HCl (Metformin HCl), 1 TAB PO DAILY, (Reported) Metoprolol Succinate (Metoprolol Succinate), 25 MG PO DAILY, (Reported) Rosuvastatin Calcium (Rosuvastatin Calcium), 1 TAB PO DAILY, (Reported) Current BP 140/84 AFTER EXERCISE Med Change: No ( NOTIFIED ABOUT BP BUT NO CHANGES MADE TO MEDICATION) Intervention Home exercise: Type (SEE PRIOR ITP FOR HOME EXERCISE PLAN GIVEN TO PT) Education Goals Met: No (PROGRESSING TOWARD GOALS) Target Goals Individual exercise Rx (1) BP 140/90 or 130/80 if DM or CKD (1) Aerobic active 30+min 5 days per week (1) Nutrition Date: Jan 03, 2019 Assessment: Re-Assessment II (III) Stages of change: maintenance Diabetes Diabetes: Yes Fasting Blood Sugar: 113 Monitor Blood Sugar at home: Yes Frequency DAILY FINGER STICKS Current Weight (pounds): 166 Weight Goal TO MAINTAIN Intervention Diet Class: Yes (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) Education S&S hypo/hyper glycemia (PT AWARE OF S/S OF GLYCEMIA, ) Education Goals Met: No (PROGRESSING TOWARD GOALS) Target goal LDL-C<100 if triglycerides are >200 Non-HDL-C should be <130 (1) LDL-C<70 for high risk patients (4) HbA1c<7% (1) BMI<25 Waist cir<40in M/<35in F (1) Education Date: Jan 03, 2019 Assessment: Re-Assessment II (III) Tobacco use: Yes Intervention Referral to smoking cessation: No (PT STATES HE IS NOT SMOKING) Education: tobacco triggers (PRINTED MATERIAL GIVEN TO PT), CAD (REVIEW RISK FACTORS AND PATHIOPHYSIOLOGY OF CARDIAC DISEASE), med compliance (ACKNOWLEDGED IMPORTANCE OF TAKING MEDICATIONS) Education Goals Met: No (PROGRESSING TOWARD GOALS) Target Goals Complete cessation of tobacco use (1). Psychosocial Date: Jan 03, 2019 Assessment: Re-Assessment II (III) Stages of change: action Intervention Physician Consult: No Physician Referral: No Stress Management Class: Yes Education Education: Coping Techniques (DOING THINGS YOU LIKE AND TAKING CARD OF SELF.), Relaxation Techniques (TAKING TIME TO DO DEEP BREATHING EXERCISES) Education Goals Met: No Target Goal Assess presence or absence of depression using a valid screening tool (1). Maximize coping skills (2). Positive support system (2). Provider Assessment Session Number: 27 Provider Assessment: No changes (NEED TO TAKE TIME FOR SELF. 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 APPEARS TO BE VERY TIRED AND WITHDRAWN) Dahlia Kovacs RN Jan 03, 2019 13:55
== END 2019-01-22 ==
LOC: M CR 10:24
PROVIDERS: ATTEND Internal Medicine Cardiovascular Disease
DX: Z95.1 Presence of aortocoronary bypass graft (principal)

== ENCOUNTER 2019-01-26 13:12 | Outpatient (RCR) | payer MEDICARE, OTHER ==
--- NOTE | 2019-01-26 11:23 | CARECAPL ---
Assessment Account #s: Discharge General Diagnoses: CABG Date of event: Sep 17, 2018 Physician: Alexandre Quitneros MD Allergies: Coded Allergies: Contrast Media (Verified Allergy, Intermediate, HIVES, 08/10/18) varenicline (Verified Allergy, Intermediate, 10/29/18) causes aggressive behavior bee venom protein (honey bee) (Verified Allergy, Unknown, 08/10/18) Date Entered Program: Oct 29, 2018 Risk strat for cardiac event: High Exercise Date: Jan 26, 2019 Assessment: Followup/Discharge Stages of change: maintenance Exercise Prescription Plan Educate on cardiovascular disease and increase endurance, strength and flexibility through a monitored exercise program. Modalities initiated: Nustep (resistance of10 for 20 minutes mets 3.2 RPE 3), Arm Aerometer (resistance of 7.5 for 10 minutes Mets 4.2 RPE 3), Dumbells (10lbs 1 set 15 reps RPE 3), Recumbent Bike (Resistance of 1 for 8 minutes mets 4.6 RPE 3) Frequency: 3 Duration (Minutes) 30 - 60 minutes total exercise a day. 15 - 20 work intervals in minutes. PRN rest intervals in minutes. Functional Capacity Goal Sustained Metabolic Equivalent of a task (MET) goal of for minutes. Intensity: 3-Moderate Progression (METS) Increase by: METS every: sessions Angina with ex: No Target Heart Rate rest + 35-40 per beta travon therapy. Resistance Training: Yes Weight (pounds): 10 Reps: 12-15 Medications Scheduled Aspirin (Aspir 81), 81 MG PO DAILY, (Reported) Bisoprolol Fumarate (Bisoprolol Fumarate), 5 MG PO DAILY, (Reported) Clopidogrel Bisulfate (Plavix), 75 MG PO QPM, (Reported) Cyanocobalamin (Vitamin B-12) (Vitamin B-12), 1 TAB PO DAILY, (Reported) Esomeprazole Magnesium (Nexium), 40 MG PO QPM, (Reported) Ferrous Sulfate (Iron), 1 TAB PO DAILY, (Reported) Folic Acid (Folic Acid), 1 TAB PO DAILY, (Reported) Metformin HCl (Metformin HCl), 1 TAB PO DAILY, (Reported) Metoprolol Succinate (Metoprolol Succinate), 25 MG PO DAILY, (Reported) Rosuvastatin Calcium (Rosuvastatin Calcium), 1 TAB PO DAILY, (Reported) Current BP 148/88 Med Change: No Education Goals Met: Yes Target Goals Individual exercise Rx (1) BP 140/90 or 130/80 if DM or CKD (1) Aerobic active 30+min 5 days per week (1) Nutrition Date: Jan 26, 2019 Assessment: Followup/Discharge Stages of change: maintenance Lipids Total Cholesterol (93), High Density Lipids (HDL) (42), Low Density Lipids (LDL) (39), Triglycerides (62), Duration (2.214) Lipid- med/supplement crestor Diabetes HbA1c (%): 6.0 (on 12/27/18) Medication Change: No Random Blood Sugar: 113 Blood sugar in range: Yes Weight Management Weight (lbs): 165 Height (inches): 68 Waist Circumference (Inches): 33 BMI: 25.09 Diet Access Tool: Rate your plate (did not do) 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 Psychosocial Date: Jan 26, 2019 Assessment: Followup/Discharge Stages of change: maintenance Med Change: No Stress Management Class: Yes Uses Stress Management Skills: Yes Education Goals Met: Yes Target Goal Assess presence or absence of depression using a valid screening tool (1). Maximize coping skills (2). Positive support system (2). Patient/Program Goal Preventative Medication: Yes Aspirin, Yes Clopidogrel, Yes Beta blockade, Yes Statin/OTR lipid Lowering Fall Risk Assess: Yes (no fall risk) Provider Assessment Session Number: 35 Provider Assessment: Proceed with rehab (patient discharged from cardiac rehab after completion. Progressed well and will be a maintenance patient.) Gladis Benitez RN Jan 26, 2019 11:23
== END 2019-02-22 ==
LOC: M CR 13:12
PROVIDERS: ATTEND Internal Medicine Cardiovascular Disease
DX: Z95.1 Presence of aortocoronary bypass graft (principal)

== ENCOUNTER 2019-03-07 08:49 | Outpatient (RCR) | payer MEDICARE, OTHER ==
[~2019-03-07 08:49] MED LIST changes: +BISO5TAB14 PO; -BISO5TAB9 PO
== END 2019-03-25 ==
LOC: M CR 08:49
PROVIDERS: ATTEND Internal Medicine Cardiovascular Disease
DX: Z95.1 Presence of aortocoronary bypass graft (principal)

== ENCOUNTER 2019-03-17 11:38 | Day surgery (SDC) | payer MEDICARE, OTHER ==
[~2019-03-17] VITALS: Ht 172.7 cm; Wt 73.9 kg
[~2019-03-17 11:38] MED LIST changes: +NS 1,000 ML IV ONE
[2019-03-17] MEDS ORDERED: propofoL 200 MG/20 ML VIAL As Ordered ONE (12:32)
[2019-03-17] MEDS ORDERED: LIDOCAINE 2% INJ 100 MG/5 ML SDV (FOR ANES.) As Ordered ONE (12:32)
--- NOTE | 2019-03-17 12:58 | ROOR ---
Patient Name: Brenden Murry Procedure Date: 03/17/2019 12:40 PM Date of : 1950 Age: 68 Room: [facility] Gender: Male Note Status: Finalized Procedure: Colonoscopy Indications: High risk colon cancer surveillance: Personal history of colon cancer Providers: Errol Felix Jr, MD Referring MD: Marcelo Aranda MD Requesting Provider: Medicines: Propofol per Anesthesia Complications: No immediate complications. Procedure: Pre-Anesthesia Assessment: - Prior to the procedure, a History and Physical was performed, and patient medications and allergies were reviewed. The patient is competent. The risks and benefits of the procedure and the sedation options and risks were discussed with the patient. All questions were answered and informed consent was obtained. Patient identification and proposed procedure were verified by the physician and the nurse in the pre-procedure area and in the procedure room. Mental Status Examination: alert and oriented. Airway Examination: normal oropharyngeal airway and neck mobility. Respiratory Examination: clear to auscultation. CV Examination: normal. ASA Grade Assessment: II - A patient with mild systemic disease. After reviewing the risks and benefits, the patient was deemed in satisfactory condition to undergo the procedure. The anesthesia plan was to use moderate sedation / analgesia (conscious sedation). Immediately prior to administration of medications, the patient was re-assessed for adequacy to receive sedatives. The heart rate, respiratory rate, oxygen saturations, blood pressure, adequacy of pulmonary ventilation, and response to care were monitored throughout the procedure. The physical status of the patient was re-assessed after the procedure. The Colonoscope was introduced through the anus and advanced to the ileocolonic anastomosis. The colonoscopy was performed without difficulty. The patient tolerated the procedure well. The quality of the bowel preparation was adequate. Findings: The rectum, recto-sigmoid colon, sigmoid colon, descending colon, transverse colon, ascending colon and anastomosis appeared normal. Impression: - The rectum, recto-sigmoid colon, sigmoid colon, descending colon, transverse colon, ascending colon and colonic anastomosis are normal. - No specimens collected. Recommendation: - Discharge patient to home (ambulatory). - Repeat colonoscopy in 5 years for surveillance. Errol Felix MD Errol Felix Jr, MD 03/17/2019 12:58:20 PM Electronically signed by Errol Felix Jr, MD Number of Addenda: 0 Note Initiated On: 03/17/2019 12:40 PM Estimated Blood Loss: Estimated blood loss: none.
[2019-03-17 13:40] VITALS: BP 128/68
== END 2019-03-17 14:08 | disposition home or self-care (01) ==
LOC: M OPP 11:38
PROVIDERS: ATTEND Surgery
DX: Z12.11 Encounter for screening for malignant neoplasm of colon (principal); Z85.038 Personal history of other malignant neoplasm of large intestine; Z79.82 Long term (current) use of aspirin; Z79.899 Other long term (current) drug therapy; Z91.030 Bee allergy status; Z91.041 Radiographic dye allergy status

== ENCOUNTER 2019-04-06 14:00 | Outpatient (RCR) | payer OTHER ==
[~2019-04-06] VITALS: Ht 172.7 cm; Wt 75.0 kg
[~2019-04-06 14:00] MED LIST changes: -NS 1,000 ML IV ONE
== END 2019-04-23 ==
LOC: M CR 14:00
PROVIDERS: ATTEND Internal Medicine Cardiovascular Disease
DX: Z95.1 Presence of aortocoronary bypass graft (principal)

== ENCOUNTER 2019-04-25 10:59 | Outpatient (RCR) | payer MEDICARE, OTHER | END 2019-05-24 | LOC: M CR 10:59 | PROVIDERS: ATTEND Internal Medicine Cardiovascular Disease | DX: Z95.1 Presence of aortocoronary bypass graft (principal) ==

== ENCOUNTER → 2019-07-08 | Outpatient (CLI) | payer OTHER ==
[2019-07-08 10:15] LABS: BASO # 0.1 10^3/uL (0.0-0.2); BASO % 1.7 % (0.0-1.0); EOS # 0.3 10^3/uL (0.0-0.5); EOS % 5.7 % (0.0-3.0); HEMATOCRIT 45.7 % (42.0-52.0); HEMOGLOBIN 14.8 g/dl (13.5-17.5); LYMPH # 1.3 10^3/uL (1.5-5.0); LYMPH % 27.7 % (24.0-44.0); MEAN CORPUSCULAR HEMOGLOBIN 32.7 pg (27.0-33.0); MEAN CORPUSCULAR HGB CONC 32.4 g/dl (32.0-36.5); MEAN CORPUSCULAR VOLUME 100.9 fl (80.0-96.0); MONO # 0.5 10^3/uL (0.0-0.8); MONO % 11.3 % (0.0-5.0); NEUTROPHILS # 2.5 10^3/uL (1.5-8.5); NEUTROPHILS % 53.2 % (36.0-66.0); PLATELET COUNT, AUTOMATED 174 10^3/uL (150-450); RED BLOOD COUNT 4.53 10^6/uL (4.30-6.10); WHITE BLOOD COUNT 4.8 10^3/uL (4.0-10.0)
[2019-07-08 10:18] LABS: HEMATOCRIT 45.7 % (42.0-52.0)
[2019-07-08 10:38] LABS: ALBUMIN 3.8 GM/DL (3.2-5.2); ALT/SGPT 27 U/L (12-78); BILIRUBIN,TOTAL 0.9 MG/DL (0.2-1.0); BLOOD UREA NITROGEN 16 MG/DL (7-18); CALCIUM LEVEL 8.6 MG/DL (8.8-10.2); CARBON DIOXIDE LEVEL 27 MEQ/L (21-32); CHLORIDE LEVEL 107 MEQ/L (98-107); CREATININE FOR GFR 0.97 MG/DL (0.70-1.30); GLOMERULAR FILTRATION RATE > 60.0 (>49); GLUCOSE, FASTING 94 MG/DL (70-100); HEMOGLOBIN A1c 6.8 %; POTASSIUM SERUM 5.2 MEQ/L (3.5-5.1); SODIUM LEVEL 139 MEQ/L (136-145); TOTAL PROTEIN 7.5 GM/DL (6.4-8.2)
[2019-07-08 10:52] LABS: VITAMIN B12 LEVEL 374 PG/ML (247-911)
== END ==
LOC: M WUC 08:12
PROVIDERS: ATTEND Family Medicine
DX: E53.8 Deficiency of other specified B group vitamins (principal); R73.01 Impaired fasting glucose
CPT/HCPCS: 36415; 80053; 82607; 82747; 83036; 83525; 85025; 85046; G0103

== ENCOUNTER → 2019-07-22 | Outpatient (CLI) | payer MEDICARE, OTHER ==
[~2019-07-22] MED LIST changes: +FOLI400T PO; +METH750T2 PO; +NAPR-837 PO; +ROBA750T4 PO; +VALI5TAB PO
--- NOTE | 2019-07-22 10:20 | REP ---
LOW DOSE LUNG SCREENING CT: Low dose lung screening CT examination is performed and compared to a prior study of 07/06/2018. Multiple sternal wires are again noted. Diffuse fibrotic changes are stable. Tiny calcified granuloma is seen in the right upper lobe and another is seen in the right lower lobe. There are two calcified granulomas in the left lower lobe. No suspicious pulmonary nodule is seen. The heart is normal in size. No pleural effusion is seen. There is a tiny pleural calcification in the posterior aspect of the left lower hemithorax. No mediastinal contour abnormality is seen. There is no aneurysm of the thoracic aorta. There are degenerative changes of the spine. IMPRESSION: Stable chronic lung findings. No suspicious pulmonary nodule. Lung RADS category 1 exam. Recommend followup exam in 1 year. Electronically Signed by Luis Louise MD 07/22/2019 10:51 A
== END ==
LOC: M RAD 07:34
PROVIDERS: ATTEND Family Medicine
DX: Z12.2 Encounter for screening for malignant neoplasm of respiratory organs (principal); F17.210 Nicotine dependence, cigarettes, uncomplicated

== ENCOUNTER 2019-08-15 02:01 | Emergency (ER) | payer MEDICARE, OTHER ==
[~2019-08-15] VITALS: Ht 172.7 cm; Wt 77.3 kg
[~2019-08-15 02:01] MED LIST changes: -FOLI400T PO; -METH750T2 PO; -NAPR-837 PO; -ROBA750T4 PO; -VALI5TAB PO
[2019-08-15] MEDS ORDERED: FOLI400T PO (02:15)
[2019-08-15] MEDS ORDERED: METHOCARBAMOL 1,000 MG/10 ML VIAL (J2800) IV ONE (04:00)
[2019-08-15] MEDS ORDERED: KETOROLAC 30 MG/ML 1ML VIAL IV ONE (04:00)
[2019-08-15] MEDS ORDERED: KETOROLAC 30 MG/ML 1ML VIAL As Ordered ONE (04:03)
--- NOTE | 2019-08-15 05:15 | REPVR ---
PROCEDURE INFORMATION: Exam: CT Lumbar Spine Without Contrast Exam date and time: 08/15/2019 4:15 AM Age: 69 years old Clinical indication: Low back pain; Additional info: New onset atraumatic low back pain TECHNIQUE: Imaging protocol: Computed tomography images of the lumbar spine without contrast. Radiation optimization: All CT scans at this facility use at least one of these dose optimization techniques: automated exposure control; mA and/or kV adjustment per patient size (includes targeted exams where dose is matched to clinical indication); or iterative reconstruction. COMPARISON: [facility] Spine. Lumbosacral, complete 2013-11-25 15:23 FINDINGS: Vertebrae: Minimal degenerative L4-L5 anterolisthesis. No acute vertebral fracture/subluxation. Maintained vertebral body heights. Discs/Spinal canal/Neural foramina: Moderate lower lumbar facet arthropathy. Degenerative disc disease greatest at L3-S1 most severe at L4-L5 with moderate to severe spinal and moderate foraminal stenosis. Left subarticular disc protrusion causes severe left subarticular stenosis. Vasculature: Mild ectasia of the infrarenal aorta. Soft tissues: Unremarkable. IMPRESSION: 1. Degenerative disc disease greatest at L3-S1 most severe at L4-L5 with moderate to severe spinal and moderate foraminal stenosis. 2. No acute vertebral fracture/subluxation. Electronically signed by: Clay Espinoza On 08/15/2019 05:15:33 AM
[2019-08-15] MEDS ORDERED: NAPR-837 PO (06:48)
[2019-08-15] MEDS ORDERED: ROBA750T4 PO (06:48)
[2019-08-15 06:58] VITALS: BP 156/82
== END 2019-08-15 06:59 | disposition home or self-care (01) ==
LOC: M ED 02:01
DX: M54.5 Low back pain (principal); M51.36 Other intervertebral disc degeneration, lumbar region; M51.37 Other intervertebral disc degeneration, lumbosacral region; M99.53 Intervertebral disc stenosis of neural canal of lumbar region; I25.10 Atherosclerotic heart disease of native coronary artery without angina pectoris; I25.2 Old myocardial infarction; E11.9 Type 2 diabetes mellitus without complications; Z95.5 Presence of coronary angioplasty implant and graft; Z79.82 Long term (current) use of aspirin; Z79.84 Long term (current) use of oral hypoglycemic drugs; Z79.899 Other long term (current) drug therapy; Z91.041 Radiographic dye allergy status; Z91.030 Bee allergy status; Z88.8 Allergy status to other drugs, medicaments and biological substances
CPT/HCPCS: 72131; 96374; 96375; 99284; J1885; J2800

== ENCOUNTER 2019-08-23 13:39 | Emergency (ER) | payer MEDICARE, OTHER ==
[~2019-08-23 13:39] MED LIST changes: +FOLI400T PO; +NAPR-837 PO; +ROBA750T4 PO
[2019-08-23] MEDS ORDERED: METH750T2 PO (13:59)
[2019-08-23] MEDS ORDERED: MORPHINE 4 MG/ML 1ML VIAL/SYRINGE (J2270) IV ONE (14:45)
[2019-08-23] MEDS ORDERED: diazePAM 10MG/2ML SYRINGE (J3360 PER 5MG) IV ONE (14:45)
[2019-08-23 15:41] VITALS: BP 102/67
[2019-08-23] MEDS ORDERED: PERC5TAB12 PO (15:42)
[2019-08-23] MEDS ORDERED: VALI5TAB PO (15:42)
== END 2019-08-23 16:03 | disposition home or self-care (01) ==
LOC: EDBD 13:39 → M ED 13:39
DX: M51.36 Other intervertebral disc degeneration, lumbar region (principal); I10 Essential (primary) hypertension; K21.9 Gastro-esophageal reflux disease without esophagitis; Z87.891 Personal history of nicotine dependence; Z79.82 Long term (current) use of aspirin; Z79.899 Other long term (current) drug therapy; Z91.041 Radiographic dye allergy status; Z91.030 Bee allergy status; Z88.8 Allergy status to other drugs, medicaments and biological substances
CPT/HCPCS: 96374; 96375; 99284; J2270; J3360

== ENCOUNTER → 2019-12-17 | Outpatient (CLI) | payer MEDICARE, OTHER ==
[~2019-12-17] MED LIST changes: -ASPI81TA85 PO; +ASPI81TA86 PO; +METH750T2 PO; +VALI5TAB PO
[2019-12-17 16:06] LABS: APPEARANCE, URINE CLEAR (CLEAR); BACTERIA, URINE AUTO NEGATIVE (NEGATIVE); BILIRUBIN, URINE AUTO NEGATIVE (NEGATIVE); BLOOD, URINE BLOOD NEGATIVE (NEGATIVE); COLOR, URINE YELLOW (YELLOW); GLUCOSE, URINE (UA) AUTO NEGATIVE (NEGATIVE); KETONE, URINE AUTO NEGATIVE (NEGATIVE); LEUKOCYTE ESTERASE, URINE AUTO NEGATIVE (NEGATIVE); MUCUS, URINE SMALL (NEGATIVE); NITRITE, URINE AUTO NEGATIVE (NEGATIVE); PROTEIN, URINE AUTO NEGATIVE (NEGATIVE); RBC, URINE AUTO 0 /HPF (0-3); SPECIFIC GRAVITY URINE AUTO 1.018 (1.002-1.035); SQUAMOUS EPITHELIAL CELL UR AU 0 /HPF (0-6); UROBILINOGEN, URINE AUTO 0.2 mg/dL (0.0-2.0); WBC, URINE AUTO 0 /HPF (0-3)
[2019-12-17 16:18] LABS: ALBUMIN 3.6 GM/DL (3.2-5.2); ALT/SGPT 20 U/L (12-78); BILIRUBIN,TOTAL 0.6 MG/DL (0.2-1.0); BLOOD UREA NITROGEN 18 MG/DL (7-18); CARBON DIOXIDE LEVEL 28 MEQ/L (21-32); CHLORIDE LEVEL 108 MEQ/L (98-107); CHOLESTEROL LEVEL 143 MG/DL (<200); CHOLESTEROL RISK RATIO 3.404 (<5); CREATININE FOR GFR 0.96 MG/DL (0.70-1.30); FREE T4 0.96 NG/DL (0.76-1.46); GLOMERULAR FILTRATION RATE > 60.0 (>49); GLUCOSE, FASTING 94 MG/DL (70-100); HDL CHOLESTEROL 42 MG/DL (>40); LDL CHOLESTEROL 84 MG/DL (<100); NON-HDL-C 101 MG/DL; POTASSIUM SERUM 4.8 MEQ/L (3.5-5.1); SODIUM LEVEL 139 MEQ/L (136-145); TRIGLYCERIDES LEVEL 83 MG/DL (<150)
[2019-12-17 16:22] LABS: HEMOGLOBIN A1c 5.8 %
[2019-12-17 16:40] LABS: MALB URINE SIEMENS 27.5 MG/L
== END ==
LOC: M WUC 08:07
PROVIDERS: ATTEND Family Medicine
DX: R73.01 Impaired fasting glucose (principal); E78.2 Mixed hyperlipidemia

== ENCOUNTER → 2020-06-17 | Outpatient (CLI) | payer MEDICARE, OTHER ==
[~2020-06-17] MED LIST changes: -FOLI400T PO; +FOLI400T13 PO; +METH-1165 PO; -METH750T2 PO
[2020-06-17 09:13] LABS: BASO # 0.1 10^3/uL (0.0-0.2); BASO % 1.1 % (0.0-1.0); EOS # 0.2 10^3/uL (0.0-0.5); EOS % 4.4 % (0.0-3.0); HEMATOCRIT 45.6 % (42.0-52.0); HEMOGLOBIN 15.1 g/dl (13.5-17.5); LYMPH # 1.3 10^3/uL (1.5-5.0); MEAN CORPUSCULAR HEMOGLOBIN 33.3 pg (27.0-33.0); MEAN CORPUSCULAR HGB CONC 33.1 g/dl (32.0-36.5); MEAN CORPUSCULAR VOLUME 100.7 fl (80.0-96.0); MONO # 0.7 10^3/uL (0.0-0.8); MONO % 12.6 % (2.0-8.0); NEUTROPHILS % 56.5 % (36.0-66.0); PLATELET COUNT, AUTOMATED 159 10^3/uL (150-450); RED BLOOD COUNT 4.53 10^6/uL (4.30-6.10); WHITE BLOOD COUNT 5.3 10^3/uL (4.0-10.0)
[2020-06-17 09:38] LABS: ALBUMIN 3.6 GM/DL (3.2-5.2); ALT/SGPT 18 U/L (12-78); BILIRUBIN,TOTAL 0.3 MG/DL (0.2-1.0); BLOOD UREA NITROGEN 22 MG/DL (7-18); CALCIUM LEVEL 9.2 MG/DL (8.8-10.2); CARBON DIOXIDE LEVEL 26 MEQ/L (21-32); CHLORIDE LEVEL 109 MEQ/L (98-107); CHOLESTEROL LEVEL 140 MG/DL (<200); CHOLESTEROL RISK RATIO 2.978 (<5); CREATININE FOR GFR 0.93 MG/DL (0.70-1.30); GLOMERULAR FILTRATION RATE > 60.0 (>49); GLUCOSE, FASTING 95 MG/DL (70-100); HDL CHOLESTEROL 47 MG/DL (>40); LDL CHOLESTEROL 78 MG/DL (<100); NON-HDL-C 93 MG/DL; POTASSIUM SERUM 4.7 MEQ/L (3.5-5.1); SODIUM LEVEL 140 MEQ/L (136-145); TOTAL PROTEIN 7.2 GM/DL (6.4-8.2); TRIGLYCERIDES LEVEL 74 MG/DL (<150)
[2020-06-17 10:21] LABS: HEMOGLOBIN A1c 5.8 %
== END ==
LOC: M LAB 08:18
PROVIDERS: ATTEND Family Medicine
DX: I10 Essential (primary) hypertension (principal); R73.01 Impaired fasting glucose; Z12.5 Encounter for screening for malignant neoplasm of prostate
CPT/HCPCS: 36415; 80053; 80061; 83036; 83525; 85025; 85046; G0103

== ENCOUNTER → 2020-07-25 | Outpatient (CLI) | payer MEDICARE, OTHER ==
--- NOTE | 2020-07-25 12:40 | REP ---
INDICATION: LUNG SCREENING COMPARISON: 07/22/2019 TECHNIQUE: Axial noncontrast images from the thoracic inlet to the upper abdomen using low-dose lung screening technique (LDCT). FINDINGS: Chronic stable COPD/emphysematous changes along with right middle lobe scarring again noted and relatively stable. No acute consolidation, suspicious nodule or mass lesion. Few small calcified granulomata are again identified. No effusion. No pneumothorax. Tracheobronchial tree is patent. IMPRESSION: Lung-RADS category 2. Chronic stable changes. Management recommendations include annual low-dose CT surveillance. <Electronically signed by Chidi Orozco > 07/25/20 [id number]
== END ==
LOC: M RAD 12:17
PROVIDERS: ATTEND Family Medicine
DX: Z12.2 Encounter for screening for malignant neoplasm of respiratory organs (principal); Z87.891 Personal history of nicotine dependence

== ENCOUNTER → 2020-11-18 | Outpatient (CLI) | payer MEDICARE, OTHER ==
[2020-11-18 10:56] LABS: HEMATOCRIT 48.2 % (42.0-52.0); HEMOGLOBIN 15.9 g/dl (13.5-17.5); MEAN CORPUSCULAR HEMOGLOBIN 33.3 pg (27.0-33.0); PLATELET COUNT, AUTOMATED 170 10^3/uL (150-450); RED BLOOD COUNT 4.77 10^6/uL (4.30-6.10); WHITE BLOOD COUNT 5.8 10^3/uL (4.0-10.0)
[2020-11-18 11:20] LABS: ATYPICAL LYMPH 2 % (0-5); BASOPHILS 2 % (0-1); EOSINOPHILS 4 % (0-3); HEMOGLOBIN A1c 5.9 %; LYMPHOCYTES 20 % (16-44); MONOCYTES 6 % (0-5); NEUTROPHILS 64 % (28-66); PLATELET ESTIMATE NORMAL (NORMAL)
[2020-11-18 11:21] LABS: ANISOCYTOSIS 1+
[2020-11-18 11:29] LABS: ALBUMIN 3.6 GM/DL (3.2-5.2); ALT/SGPT 21 U/L (12-78); BILIRUBIN,TOTAL 0.7 MG/DL (0.2-1.0); BLOOD UREA NITROGEN 15 MG/DL (7-18); CARBON DIOXIDE LEVEL 28 MEQ/L (21-32); CHLORIDE LEVEL 108 MEQ/L (98-107); CREATININE FOR GFR 1.01 MG/DL (0.70-1.30); FERRITIN 152 NG/ML (26-388); GLOMERULAR FILTRATION RATE > 60.0 (>49); GLUCOSE, FASTING 86 MG/DL (70-100); POTASSIUM SERUM 4.6 MEQ/L (3.5-5.1); SODIUM LEVEL 140 MEQ/L (136-145); TOTAL PROTEIN 7.4 GM/DL (6.4-8.2)
[2020-11-19 11:09] LABS: PTH INTACT 31.1 PG/ML (18.5-88.0); TOTAL 25(OH) VITAMIN D 30.7 NG/ML (30.0-100.0); VITAMIN B12 LEVEL 402 PG/ML (247-911)
== END ==
LOC: M LAB 09:59
PROVIDERS: ATTEND Family Medicine
DX: E53.8 Deficiency of other specified B group vitamins (principal); R73.01 Impaired fasting glucose; E55.9 Vitamin D deficiency, unspecified

== ENCOUNTER → 2021-01-23 | Outpatient (CLI) | payer MEDICARE, OTHER ==
[2021-01-23 10:37] LABS: C REACTIVE PROTEIN QUANTITATIV 0.46 MG/DL (0.00-0.30); CHOLESTEROL RISK RATIO 2.358 (<5)
== END ==
LOC: M LAB 09:11
PROVIDERS: ATTEND Family Medicine
DX: E78.2 Mixed hyperlipidemia (principal)

== ENCOUNTER → 2021-07-12 | Outpatient (CLI) | payer MEDICARE, OTHER ==
[2021-07-12 10:19] LABS: HEMATOCRIT 42.3 % (42.0-52.0); HEMOGLOBIN 13.7 g/dl (13.5-17.5); MEAN CORPUSCULAR HEMOGLOBIN 33.1 pg (27.0-33.0); MEAN CORPUSCULAR HGB CONC 32.4 g/dl (32.0-36.5); MEAN CORPUSCULAR VOLUME 102.2 fl (80.0-96.0); PLATELET COUNT, AUTOMATED 157 10^3/uL (150-450); RED BLOOD COUNT 4.14 10^6/uL (4.30-6.10); WHITE BLOOD COUNT 5.1 10^3/uL (4.0-10.0)
[2021-07-12 10:49] LABS: ALBUMIN 3.6 GM/DL (3.2-5.2); ALT/SGPT 17 U/L (12-78); BILIRUBIN,TOTAL 0.4 MG/DL (0.2-1.0); BLOOD UREA NITROGEN 19 MG/DL (7-18); CALCIUM LEVEL 8.9 MG/DL (8.8-10.2); CARBON DIOXIDE LEVEL 28 MEQ/L (21-32); CHLORIDE LEVEL 108 MEQ/L (98-107); FERRITIN 157 NG/ML (26-388); GLOMERULAR FILTRATION RATE > 60.0 (>42); GLUCOSE, FASTING 109 MG/DL (70-100); IRON (FE) 82 UG/DL (65-175); MAGNESIUM LEVEL 2.3 MG/DL (1.8-2.4); POTASSIUM SERUM 4.7 MEQ/L (3.5-5.1); SODIUM LEVEL 139 MEQ/L (136-145); TOTAL IRON BINDING CAPACITY 315 UG/DL (250-450); TOTAL PROTEIN 7.2 GM/DL (6.4-8.2)
[2021-07-12 11:10] LABS: ATYPICAL LYMPH 3 % (0-5); BASOPHILS 1 % (0-1); EOSINOPHILS 7 % (0-3); LYMPHOCYTES 25 % (16-44); MONOCYTES 14 % (0-5); MYELOCYTES 1 % (0-0); NEUTROPHILS 49 % (28-66); PLATELET ESTIMATE NORMAL (NORMAL)
== END ==
LOC: M PLALAB 08:15
PROVIDERS: ATTEND Family Medicine
DX: D75.89 Other specified diseases of blood and blood-forming organs (principal); I10 Essential (primary) hypertension; E78.2 Mixed hyperlipidemia

== ENCOUNTER → 2021-07-26 | Outpatient (CLI) | payer MEDICARE, OTHER | LOC: M RAD 06:27 | PROVIDERS: ATTEND Family Medicine | DX: Z12.2 Encounter for screening for malignant neoplasm of respiratory organs (principal); Z87.891 Personal history of nicotine dependence; R91.8 Other nonspecific abnormal finding of lung field ==

== ENCOUNTER → 2021-08-16 | Outpatient (CLI) | payer MEDICARE, OTHER ==
[~2021-08-16] MED LIST changes: +ISOVUE-370 76% 100ML VIAL As Ordered ONE
== END ==
LOC: M RAD 15:00
PROVIDERS: ATTEND Family Medicine
DX: R59.0 Localized enlarged lymph nodes (principal); J43.9 Emphysema, unspecified
CPT/HCPCS: 71260; Q9967

== ENCOUNTER → 2021-08-19 | Outpatient (CLI) | payer MEDICARE, OTHER ==
[~2021-08-19] MED LIST changes: -ISOVUE-370 76% 100ML VIAL As Ordered ONE
== END ==
LOC: M CARPUL 10:27
PROVIDERS: ATTEND Family Medicine
DX: I50.33 Acute on chronic diastolic (congestive) heart failure (principal); I08.3 Combined rheumatic disorders of mitral, aortic and tricuspid valves

== ENCOUNTER → 2021-12-06 | Outpatient (REF) | payer MEDICARE, OTHER ==
[2021-12-06 11:31] LABS: BASO # 0.1 10^3/uL (0.0-0.2); EOS # 0.2 10^3/uL (0.0-0.5); EOS % 4.3 % (0.0-3.0); HEMATOCRIT 44.2 % (42.0-52.0); HEMOGLOBIN 14.6 g/dl (13.5-17.5); LYMPH # 1.3 10^3/uL (1.5-5.0); LYMPH % 25.2 % (24.0-44.0); MEAN CORPUSCULAR HEMOGLOBIN 33.7 pg (27.0-33.0); MEAN CORPUSCULAR VOLUME 102.1 fl (80.0-96.0); MONO # 0.5 10^3/uL (0.0-0.8); MONO % 10.2 % (2.0-8.0); NEUTROPHILS % 58.9 % (36.0-66.0); PLATELET COUNT, AUTOMATED 140 10^3/uL (150-450); RED BLOOD COUNT 4.33 10^6/uL (4.30-6.10); WHITE BLOOD COUNT 5.1 10^3/uL (4.0-10.0)
[2021-12-06 12:44] LABS: ALBUMIN 3.6 GM/DL (3.2-5.2); ALT/SGPT 20 U/L (12-78); BILIRUBIN,TOTAL 0.6 MG/DL (0.2-1.0); BLOOD UREA NITROGEN 16 MG/DL (7-18); CALCIUM LEVEL 9.1 MG/DL (8.8-10.2); CARBON DIOXIDE LEVEL 27 MEQ/L (21-32); CHLORIDE LEVEL 108 MEQ/L (98-107); CREATININE FOR GFR 0.99 MG/DL (0.70-1.30); FERRITIN 123 NG/ML (26-388); GLOMERULAR FILTRATION RATE > 60.0 (>42); GLUCOSE, FASTING 111 MG/DL (70-100); IRON (FE) 77 UG/DL (65-175); MAGNESIUM LEVEL 2.2 MG/DL (1.8-2.4); PERCENT SATURATION 24.1 % (19.7-50.0); POTASSIUM SERUM 4.2 MEQ/L (3.5-5.1); SODIUM LEVEL 138 MEQ/L (136-145); TOTAL IRON BINDING CAPACITY 320 UG/DL (250-450); TOTAL PROTEIN 7.3 GM/DL (6.4-8.2)
[2021-12-08 16:07] LABS: APOLIPOPROTEIN B/A-1 RATIO 0.5 ratio (0.0-0.7); SOLUBLE TRANSFERRIN RECEPTOR 14.9 nmol/L (12.2-27.3)
== END ==
LOC: M LABDRWAD 10:13 → M PLALAB 10:13
PROVIDERS: ATTEND Family Medicine
DX: I10 Essential (primary) hypertension (principal); D75.89 Other specified diseases of blood and blood-forming organs; E78.2 Mixed hyperlipidemia

== ENCOUNTER → 2022-06-10 | Outpatient (CLI) | payer MEDICARE, OTHER ==
[~2022-06-10] MED LIST changes: +CLOP75TA99 PO; -PLAV1TAB2 PO
[2022-06-10 11:06] LABS: BASO # 0.1 10^3/uL (0.0-0.2); BASO % 1.3 % (0.0-1.0); EOS # 0.3 10^3/uL (0.0-0.5); EOS % 5.6 % (0.0-3.0); HEMATOCRIT 44.8 % (42.0-52.0); HEMOGLOBIN 14.6 g/dl (13.5-17.5); LYMPH # 1.3 10^3/uL (1.5-5.0); LYMPH % 25.1 % (24.0-44.0); MEAN CORPUSCULAR HEMOGLOBIN 33.5 pg (27.0-33.0); MEAN CORPUSCULAR HGB CONC 32.6 g/dl (32.0-36.5); MEAN CORPUSCULAR VOLUME 102.8 fl (80.0-96.0); MONO # 0.6 10^3/uL (0.0-0.8); MONO % 12.1 % (2.0-8.0); NEUTROPHILS # 2.9 10^3/uL (1.5-8.5); NEUTROPHILS % 55.5 % (36.0-66.0); PLATELET COUNT, AUTOMATED 156 10^3/uL (150-450); RED BLOOD COUNT 4.36 10^6/uL (4.30-6.10); WHITE BLOOD COUNT 5.2 10^3/uL (4.0-10.0)
[2022-06-10 11:27] LABS: CHOLESTEROL LEVEL 89 MG/DL (<200); CHOLESTEROL RISK RATIO 2.86 (<5); HDL CHOLESTEROL 31.1 MG/DL (>40); LDL CHOLESTEROL 35.7 MG/DL (<100); NON-HDL-C 57.9 MG/DL; TRIGLYCERIDES LEVEL 111 MG/DL (<150)
[2022-06-10 11:30] LABS: FERRITIN 123.6 NG/ML (10.5-307.3)
[2022-06-10 12:31] LABS: ALKALINE PHOSPHATASE 92 U/L (46-116); ALT/SGPT 15 U/L (7.0-40); AST/SGOT 18 U/L (<34); BILIRUBIN,TOTAL 0.6 MG/DL (0.3-1.2); BLOOD UREA NITROGEN 17 MG/DL (9-23); CALCIUM LEVEL 8.7 MG/DL (8.3-10.6); CARBON DIOXIDE LEVEL 26 MMOL/L (20-31); CHLORIDE LEVEL 106 MMOL/L (98-107); CREATININE FOR GFR 0.99 MG/DL (0.70-1.30); GLOMERULAR FILTRATION RATE > 60.0 (>42); GLUCOSE, FASTING 116 MG/DL (74-106); POTASSIUM SERUM 4.2 MMOL/L (3.5-5.1); SODIUM LEVEL 137 MMOL/L (136-145); TOTAL PROTEIN 7.1 G/DL (5.7-8.2)
[2022-06-11 19:07] LABS: IMMUNOTYPING SERUM IGA SO 191 mg/dL (61-437); IMMUNOTYPING SERUM IGM SO 47 mg/dL (15-143); INSULIN LEVEL 33.7 uIU/mL (2.6-24.9)
== END ==
LOC: M PLALAB 07:49
PROVIDERS: ATTEND Physician Assistant
DX: I11.0 Hypertensive heart disease with heart failure (principal); I25.10 Atherosclerotic heart disease of native coronary artery without angina pectoris; I50.33 Acute on chronic diastolic (congestive) heart failure; R73.01 Impaired fasting glucose; D75.89 Other specified diseases of blood and blood-forming organs; D50.9 Iron deficiency anemia, unspecified; Z12.5 Encounter for screening for malignant neoplasm of prostate; E78.2 Mixed hyperlipidemia
CPT/HCPCS: 36415; 80053; 80061; 82728; 82784; 83036; 83525; 83735; 83880; 84155; 84165; 85025; 86334; G0103

== ENCOUNTER → 2022-06-10 | Outpatient (CLI) | payer MEDICARE, OTHER | LOC: M PLALAB 07:47 | PROVIDERS: ATTEND Family Medicine | DX: R73.01 Impaired fasting glucose (principal); D75.89 Other specified diseases of blood and blood-forming organs; D50.9 Iron deficiency anemia, unspecified; Z12.5 Encounter for screening for malignant neoplasm of prostate; E78.2 Mixed hyperlipidemia ==

== ENCOUNTER → 2022-07-07 | Outpatient (CLI) | payer MEDICARE, OTHER ==
[2022-07-07 11:15] LABS: BASO # 0.1 10^3/uL (0.0-0.2); BASO % 1.2 % (0.0-1.0); EOS # 0.3 10^3/uL (0.0-0.5); EOS % 4.5 % (0.0-3.0); HEMATOCRIT 43.1 % (42.0-52.0); HEMOGLOBIN 13.9 g/dl (13.5-17.5); LYMPH # 1.5 10^3/uL (1.5-5.0); LYMPH % 24.4 % (24.0-44.0); MEAN CORPUSCULAR HEMOGLOBIN 32.9 pg (27.0-33.0); MEAN CORPUSCULAR HGB CONC 32.3 g/dl (32.0-36.5); MEAN CORPUSCULAR VOLUME 102.1 fl (80.0-96.0); MONO # 0.6 10^3/uL (0.0-0.8); MONO % 10.2 % (2.0-8.0); NEUTROPHILS # 3.6 10^3/uL (1.5-8.5); NEUTROPHILS % 59.5 % (36.0-66.0); PLATELET COUNT, AUTOMATED 151 10^3/uL (150-450); RED BLOOD COUNT 4.22 10^6/uL (4.30-6.10)
[2022-07-07 11:42] LABS: CHOLESTEROL RISK RATIO 2.51 (<5); HDL CHOLESTEROL 36.6 MG/DL (>40); LDL CHOLESTEROL 40.4 MG/DL (<100); NON-HDL-C 55.4 MG/DL
[2022-07-07 11:46] LABS: FERRITIN 127.9 NG/ML (10.5-307.3)
== END ==
LOC: M PLALAB 08:15
PROVIDERS: ATTEND Family Medicine
DX: R73.01 Impaired fasting glucose (principal); D75.89 Other specified diseases of blood and blood-forming organs; D50.9 Iron deficiency anemia, unspecified; Z12.5 Encounter for screening for malignant neoplasm of prostate; E78.2 Mixed hyperlipidemia
CPT/HCPCS: 36415; 80061; 82728; 82784; 83036; 83525; 84155; 84165; 85025; 86334; G0103

== ENCOUNTER → 2022-07-10 | Outpatient (REF) | payer MEDICARE, OTHER | LOC: M SFHCPLAZ 17:21 | PROVIDERS: ATTEND Family Medicine | DX: I10 Essential (primary) hypertension (principal); D75.89 Other specified diseases of blood and blood-forming organs ==

== ENCOUNTER → 2022-10-29 | Outpatient (CLI) | payer MEDICARE, OTHER | LOC: M RAD 12:10 | PROVIDERS: ATTEND Family Medicine | DX: Z12.2 Encounter for screening for malignant neoplasm of respiratory organs (principal); F17.210 Nicotine dependence, cigarettes, uncomplicated; J44.9 Chronic obstructive pulmonary disease, unspecified ==

== ENCOUNTER → 2023-01-13 | Outpatient (CLI) | payer MEDICARE, OTHER ==
[2023-01-13 11:40] LABS: BLOOD UREA NITROGEN 20 MG/DL (9-23); CREATININE FOR GFR 1.01 MG/DL (0.70-1.30); GLOMERULAR FILTRATION RATE > 60.0 (>42)
== END ==
LOC: M PLALAB 07:55
PROVIDERS: ATTEND Physician Assistant
DX: Z48.812 Encounter for surgical aftercare following surgery on the circulatory system (principal); I73.9 Peripheral vascular disease, unspecified

== ENCOUNTER → 2023-01-13 | Outpatient (CLI) | payer MEDICARE, OTHER ==
[2023-01-13 11:40] LABS: ALBUMIN 3.8 G/DL (3.2-5.2); ALKALINE PHOSPHATASE 99 U/L (46-116); ALT/SGPT 22 U/L (7.0-40); AST/SGOT 24 U/L (<34); BILIRUBIN,TOTAL 0.8 MG/DL (0.3-1.2); BLOOD UREA NITROGEN 20 MG/DL (9-23); CALCIUM LEVEL 9.2 MG/DL (8.3-10.6); CARBON DIOXIDE LEVEL 26 MMOL/L (20-31); CHLORIDE LEVEL 110 MMOL/L (98-107); CREATININE FOR GFR 1.04 MG/DL (0.70-1.30); GLOMERULAR FILTRATION RATE > 60.0 (>42); GLUCOSE, FASTING 105 MG/DL (74-106); POTASSIUM SERUM 4.5 MMOL/L (3.5-5.1); SODIUM LEVEL 141 MMOL/L (136-145); TOTAL PROTEIN 7.3 G/DL (5.7-8.2)
[2023-01-13 11:45] LABS: VITAMIN B12 LEVEL 342 PG/ML (211-911)
[2023-01-14 11:23] LABS: JAK2 MUTATIONS FOR PATH SENDOU See Pathology Report
== END ==
LOC: M PLALAB 07:58
PROVIDERS: ATTEND Family Medicine
DX: I10 Essential (primary) hypertension (principal); D75.89 Other specified diseases of blood and blood-forming organs; I50.33 Acute on chronic diastolic (congestive) heart failure

== ENCOUNTER → 2023-02-13 | Outpatient (CLI) | payer MEDICARE, OTHER ==
[2023-02-13 07:50] LABS: HEMATOCRIT 38.1 % (42.0-52.0); HEMOGLOBIN 12.6 g/dl (13.5-17.5); MEAN CORPUSCULAR HEMOGLOBIN 33.5 pg (27.0-33.0); MEAN CORPUSCULAR HGB CONC 33.1 g/dl (32.0-36.5); MEAN CORPUSCULAR VOLUME 101.3 fl (80.0-96.0); PLATELET COUNT, AUTOMATED 152 10^3/uL (150-450); RED BLOOD COUNT 3.76 10^6/uL (4.30-6.10)
[2023-02-13 08:02] LABS: INR 1.01
[2023-02-13 08:03] LABS: PARTIAL THROMBOPLASTIN TIME 27.5 SECONDS (24.8-34.2)
[2023-02-13 08:16] LABS: BLOOD UREA NITROGEN 21 MG/DL (9-23); CALCIUM LEVEL 9.3 MG/DL (8.3-10.6); CARBON DIOXIDE LEVEL 26 MMOL/L (20-31); CHLORIDE LEVEL 109 MMOL/L (98-107); CREATININE FOR GFR 1.16 MG/DL (0.70-1.30); GLOMERULAR FILTRATION RATE > 60.0 (>42); GLUCOSE, FASTING 114 MG/DL (74-106); POTASSIUM SERUM 4.2 MMOL/L (3.5-5.1); SODIUM LEVEL 141 MMOL/L (136-145)
== END ==
LOC: M LAB 07:18
PROVIDERS: ATTEND Physician Assistant
DX: Z01.818 Encounter for other preprocedural examination (principal); I70.90 Unspecified atherosclerosis; D69.8 Other specified hemorrhagic conditions

== ENCOUNTER → 2023-03-26 | Outpatient (CLI) | payer MEDICARE, OTHER | LOC: M PLAIMG 08:42 | PROVIDERS: ATTEND Family Medicine | DX: K76.9 Liver disease, unspecified (principal); N28.9 Disorder of kidney and ureter, unspecified; Z53.9 Procedure and treatment not carried out, unspecified reason ==

== ENCOUNTER → 2023-04-16 | Outpatient (CLI) | payer MEDICARE, OTHER ==
[~2023-04-16] MED LIST changes: +FERR325T14 PO; -IRON325T9 PO; +PROHANCE 279.3MG/ML 15ML VIAL ONE
== END ==
LOC: M PLAIMG 09:08
PROVIDERS: ATTEND Family Medicine
DX: K76.89 Other specified diseases of liver (principal); N28.1 Cyst of kidney, acquired
CPT/HCPCS: 74183; A9576

== ENCOUNTER → 2023-06-17 | Outpatient (CLI) | payer MEDICARE, OTHER ==
[~2023-06-17] MED LIST changes: -PROHANCE 279.3MG/ML 15ML VIAL ONE
[2023-06-17 10:14] LABS: BASO # 0.1 10^3/uL (0.0-0.2); BASO % 1.1 % (0.0-1.0); EOS # 0.3 10^3/uL (0.0-0.5); EOS % 4.8 % (0.0-3.0); HEMATOCRIT 37.9 % (42.0-52.0); HEMOGLOBIN 12.4 g/dl (13.5-17.5); LYMPH # 1.9 10^3/uL (1.5-5.0); LYMPH % 29.5 % (24.0-44.0); MEAN CORPUSCULAR HEMOGLOBIN 34.5 pg (27.0-33.0); MEAN CORPUSCULAR HGB CONC 32.7 g/dl (32.0-36.5); MEAN CORPUSCULAR VOLUME 105.6 fl (80.0-96.0); MONO # 0.7 10^3/uL (0.0-0.8); MONO % 11.2 % (2.0-8.0); NEUTROPHILS # 3.3 10^3/uL (1.5-8.5); NEUTROPHILS % 53.1 % (36.0-66.0); PLATELET COUNT, AUTOMATED 150 10^3/uL (150-450); RED BLOOD COUNT 3.59 10^6/uL (4.30-6.10); WHITE BLOOD COUNT 6.3 10^3/uL (4.0-10.0)
[2023-06-17 10:30] LABS: INR 0.95; PARTIAL THROMBOPLASTIN TIME 27.3 SECONDS (24.8-34.2); PROTHROMBIN TIME 12.4 SECONDS (12.5-14.5)
[2023-06-17 11:11] LABS: ALBUMIN 3.7 G/DL (3.2-5.2); ALKALINE PHOSPHATASE 111 U/L (46-116); ALT/SGPT 22 U/L (7.0-40); AST/SGOT 20 U/L (<34); BILIRUBIN,TOTAL 0.4 MG/DL (0.3-1.2); BLOOD UREA NITROGEN 25 MG/DL (9-23); CALCIUM LEVEL 9.7 MG/DL (8.3-10.6); CARBON DIOXIDE LEVEL 26 MMOL/L (20-31); CHLORIDE LEVEL 110 MMOL/L (98-107); CHOLESTEROL LEVEL 104 MG/DL (<200); CHOLESTEROL RISK RATIO 3.27 (<5); CREATININE FOR GFR 1.13 MG/DL (0.70-1.30); GLOMERULAR FILTRATION RATE > 60.0 (>42); GLUCOSE, FASTING 107 MG/DL (74-106); HDL CHOLESTEROL 31.8 MG/DL (>40); LDL CHOLESTEROL 42.2 MG/DL (<100); MAGNESIUM LEVEL 2.1 MG/DL (1.8-2.4); NON-HDL-C 72.2 MG/DL; POTASSIUM SERUM 4.8 MMOL/L (3.5-5.1); PSA SCREENING 0.15 NG/ML (< 4.00); SODIUM LEVEL 139 MMOL/L (136-145); TOTAL PROTEIN 6.9 G/DL (5.7-8.2); TRIGLYCERIDES LEVEL 150 MG/DL (<150)
[2023-06-17 11:13] LABS: FERRITIN 140.4 NG/ML (10.5-307.3)
== END ==
LOC: M PLALAB 08:04
PROVIDERS: ATTEND Family Medicine
DX: I50.32 Chronic diastolic (congestive) heart failure (principal); D50.9 Iron deficiency anemia, unspecified; E78.2 Mixed hyperlipidemia; Z12.5 Encounter for screening for malignant neoplasm of prostate; K76.0 Fatty (change of) liver, not elsewhere classified
CPT/HCPCS: 36415; 80053; 80061; 82105; 82728; 83735; 83880; 85025; 85610; 85730; G0103

== ENCOUNTER → 2023-06-22 | Outpatient (REF) | payer MEDICARE, OTHER ==
[~2023-06-22] MED LIST changes: -ROSU40TA4 PO; +ROSU40TA63 PO
== END ==
LOC: M SFHCPLAZ 19:00
PROVIDERS: ATTEND Family Medicine
DX: I50.32 Chronic diastolic (congestive) heart failure (principal); D50.9 Iron deficiency anemia, unspecified; Z53.9 Procedure and treatment not carried out, unspecified reason

== ENCOUNTER → 2023-07-17 | Outpatient (CLI) | payer MEDICARE, OTHER ==
[2023-07-17 10:56] LABS: BLOOD UREA NITROGEN 21 MG/DL (9-23); CREATININE FOR GFR 1.13 MG/DL (0.70-1.30); GLOMERULAR FILTRATION RATE > 60.0 (>42)
== END ==
LOC: M PLALAB 07:23
PROVIDERS: ATTEND Physician Assistant
DX: I73.9 Peripheral vascular disease, unspecified (principal)

== ENCOUNTER → 2023-11-10 | Outpatient (CLI) | payer MEDICARE, OTHER ==
[~2023-11-10] MED LIST changes: -ROSU40TA63 PO; +ROSU40TA81 PO
[2023-11-10 10:13] LABS: FERRITIN 87.2 NG/ML (10.5-307.3)
[2023-11-10 10:14] LABS: ALBUMIN 3.9 G/DL (3.2-5.2); ALKALINE PHOSPHATASE 96 U/L (46-116); ALT/SGPT 16 U/L (7.0-40); AST/SGOT 16 U/L (<34); BILIRUBIN,TOTAL 0.6 MG/DL (0.3-1.2); BLOOD UREA NITROGEN 18 MG/DL (9-23); CALCIUM LEVEL 9.7 MG/DL (8.3-10.6); CARBON DIOXIDE LEVEL 26 MMOL/L (20-31); CHLORIDE LEVEL 113 MMOL/L (98-107); CREATININE FOR GFR 1.26 MG/DL (0.70-1.30); GLOMERULAR FILTRATION RATE 59.9 (>42); GLUCOSE, FASTING 104 MG/DL (74-106); MAGNESIUM LEVEL 2.2 MG/DL (1.8-2.4); POTASSIUM SERUM 4.8 MMOL/L (3.5-5.1); SODIUM LEVEL 140 MMOL/L (136-145); TOTAL PROTEIN 7.2 G/DL (5.7-8.2); VITAMIN B12 LEVEL 380 PG/ML (211-911)
[2023-11-10 10:15] LABS: BASO # 0.1 10^3/uL (0.0-0.2); BASO % 1.2 % (0.0-1.0); EOS # 0.3 10^3/uL (0.0-0.5); EOS % 6.3 % (0.0-3.0); HEMATOCRIT 39.7 % (42.0-52.0); HEMATOCRIT 39.9 % (42.0-52.0); HEMOGLOBIN 12.9 g/dl (13.5-17.5); LYMPH # 1.5 10^3/uL (1.5-5.0); LYMPH % 30.4 % (24.0-44.0); MEAN CORPUSCULAR HEMOGLOBIN 33.5 pg (27.0-33.0); MEAN CORPUSCULAR HGB CONC 32.3 g/dl (32.0-36.5); MEAN CORPUSCULAR VOLUME 103.6 fl (80.0-96.0); MONO # 0.6 10^3/uL (0.0-0.8); MONO % 11.6 % (2.0-8.0); NEUTROPHILS # 2.6 10^3/uL (1.5-8.5); NEUTROPHILS % 50.3 % (36.0-66.0); PLATELET COUNT, AUTOMATED 131 10^3/uL (150-450); RED BLOOD COUNT 3.85 10^6/uL (4.30-6.10); WHITE BLOOD COUNT 5.1 10^3/uL (4.0-10.0)
[2023-11-10 10:16] LABS: IMMUNOGLOBULIN A 173.3 MG/DL (40-350); IMMUNOGLOBULIN G 1365 MG/DL (650-1600)
[2023-11-11 11:02] LABS: ERYTHROPOIETIN 21.3 mIU/mL (2.6-18.5)
== END ==
LOC: M PLALAB 07:13
PROVIDERS: ATTEND Family Medicine
DX: D50.9 Iron deficiency anemia, unspecified (principal); I50.32 Chronic diastolic (congestive) heart failure

== ENCOUNTER → 2023-12-07 | Outpatient (CLI) | payer MEDICARE, OTHER | LOC: M RAD 16:37 | PROVIDERS: ATTEND Family Medicine | DX: Z12.2 Encounter for screening for malignant neoplasm of respiratory organs (principal); F17.210 Nicotine dependence, cigarettes, uncomplicated; R91.8 Other nonspecific abnormal finding of lung field ==

== ENCOUNTER → 2024-03-28 | Outpatient (CLI) | payer MEDICARE, OTHER ==
[2024-03-28 17:26] LABS: HEMATOCRIT 38.7 % (42.0-52.0); HEMOGLOBIN 12.5 g/dl (13.5-17.5); MEAN CORPUSCULAR HEMOGLOBIN 33.5 pg (27.0-33.0); MEAN CORPUSCULAR HGB CONC 32.3 g/dl (32.0-36.5); MEAN CORPUSCULAR VOLUME 103.8 fl (80.0-96.0); PLATELET COUNT, AUTOMATED 165 10^3/uL (150-450); RED BLOOD COUNT 3.73 10^6/uL (4.30-6.10)
== END ==
LOC: M PLAIMG 16:30
PROVIDERS: ATTEND Physician Assistant Medical
DX: J40 Bronchitis, not specified as acute or chronic (principal)

== ENCOUNTER → 2024-04-15 | Outpatient (CLI) | payer MEDICARE, OTHER ==
[2024-04-15 12:30] LABS: ALBUMIN 3.7 G/DL (3.2-5.2); ALKALINE PHOSPHATASE 103 U/L (40-129); ALT/SGPT 11 U/L (7.0-40); AST/SGOT 16 U/L (<34); BASO # 0.1 10^3/uL (0.0-0.2); BASO % 1.2 % (0.0-1.0); BILIRUBIN,TOTAL 0.6 MG/DL (0.3-1.2); BLOOD UREA NITROGEN 12 MG/DL (9-23); CALCIUM LEVEL 9.2 MG/DL (8.3-10.6); CARBON DIOXIDE LEVEL 26 MMOL/L (20-31); CHLORIDE LEVEL 109 MMOL/L (98-107); CREATININE FOR GFR 1.08 MG/DL (0.70-1.30); EOS # 0.2 10^3/uL (0.0-0.5); EOS % 5.4 % (0.0-3.0); FERRITIN 95.9 NG/ML (10.5-307.3); GLOMERULAR FILTRATION RATE > 60.0 (>42); GLUCOSE, FASTING 102 MG/DL (74-106); HEMATOCRIT 37.1 % (42.0-52.0); HEMATOCRIT 37.3 % (42.0-52.0); LYMPH # 1.3 10^3/uL (1.5-5.0); MAGNESIUM LEVEL 2.3 MG/DL (1.8-2.4); MEAN CORPUSCULAR HEMOGLOBIN 33.3 pg (27.0-33.0); MEAN CORPUSCULAR HGB CONC 32.2 g/dl (32.0-36.5); MEAN CORPUSCULAR VOLUME 103.6 fl (80.0-96.0); MONO # 0.5 10^3/uL (0.0-0.8); MONO % 11.5 % (2.0-8.0); NEUTROPHILS % 49.7 % (36.0-66.0); PLATELET COUNT, AUTOMATED 169 10^3/uL (150-450); POTASSIUM SERUM 4.7 MMOL/L (3.5-5.1); SODIUM LEVEL 141 MMOL/L (136-145); TOTAL PROTEIN 7.4 G/DL (5.7-8.2); VITAMIN B12 LEVEL 478 PG/ML (211-911); WHITE BLOOD COUNT 4.1 10^3/uL (4.0-10.0)
[2024-04-15 15:00] LABS: IMMUNOGLOBULIN A 197.1 MG/DL (40-350); IMMUNOGLOBULIN G 1513 MG/DL (650-1600); IMMUNOGLOBULIN M 41.6 MG/DL (50-300)
[2024-04-18 09:33] LABS: ERYTHROPOIETIN 45.4 mIU/mL (2.6-18.5)
== END ==
LOC: M PLALAB 07:30
PROVIDERS: ATTEND Family Medicine
DX: I50.32 Chronic diastolic (congestive) heart failure (principal); D50.9 Iron deficiency anemia, unspecified

== ENCOUNTER → 2024-06-13 | Outpatient (CLI) | payer MEDICARE, OTHER ==
[2024-06-13 10:41] LABS: BASO # 0.1 10^3/uL (0.0-0.2); BASO % 1.3 % (0.0-1.0); EOS # 0.2 10^3/uL (0.0-0.5); EOS % 4.6 % (0.0-3.0); HEMATOCRIT 41.2 % (42.0-52.0); HEMOGLOBIN 13.4 g/dl (13.5-17.5); LYMPH # 1.3 10^3/uL (1.5-5.0); LYMPH % 26.3 % (24.0-44.0); MEAN CORPUSCULAR HEMOGLOBIN 33.7 pg (27.0-33.0); MEAN CORPUSCULAR HGB CONC 32.5 g/dl (32.0-36.5); MEAN CORPUSCULAR VOLUME 103.5 fl (80.0-96.0); MONO # 0.6 10^3/uL (0.0-0.8); MONO % 11.7 % (2.0-8.0); NEUTROPHILS # 2.7 10^3/uL (1.5-8.5); NEUTROPHILS % 55.9 % (36.0-66.0); PLATELET COUNT, AUTOMATED 134 10^3/uL (150-450); RED BLOOD COUNT 3.98 10^6/uL (4.30-6.10); WHITE BLOOD COUNT 4.8 10^3/uL (4.0-10.0)
[2024-06-13 10:43] LABS: HEMATOCRIT 41.5 % (42.0-52.0)
[2024-06-13 10:57] LABS: HEMOGLOBIN A1c 5.5 % (4.0-6.0)
[2024-06-13 11:09] LABS: ALBUMIN 3.6 G/DL (3.2-5.2); BILIRUBIN,TOTAL 0.6 MG/DL (0.3-1.2); CALCIUM LEVEL 8.9 MG/DL (8.3-10.6); CHOLESTEROL RISK RATIO 3.15 (<5); CREATININE FOR GFR 1.1 MG/DL (0.70-1.30); GLOMERULAR FILTRATION RATE 70.9 (>42); HDL CHOLESTEROL 35.5 MG/DL (>40); LDL CHOLESTEROL 58.5 MG/DL (<100); MAGNESIUM LEVEL 2.3 MG/DL (1.8-2.4); NON-HDL-C 76.5 MG/DL; POTASSIUM SERUM 4.5 MMOL/L (3.5-5.1); TOTAL PROTEIN 7.2 G/DL (5.7-8.2)
[2024-06-13 11:17] LABS: FERRITIN 74.9 NG/ML (10.5-307.3); THYROID STIMULATING HORMONE 1.744 uIU/ML (0.55-4.78)
[2024-06-13 11:18] LABS: FREE T4 1.2 NG/DL (0.89-1.76)
[2024-06-14 08:42] LABS: PROTEIN, TOTAL SO 7.1 g/dL (6.1-8.1)
== END ==
LOC: M PLALAB 08:22
PROVIDERS: ATTEND Family Medicine
DX: D50.9 Iron deficiency anemia, unspecified (principal); I50.32 Chronic diastolic (congestive) heart failure; E78.2 Mixed hyperlipidemia; Z79.899 Other long term (current) drug therapy

== ENCOUNTER → 2024-06-17 | Outpatient (CLI) | payer MEDICARE, OTHER ==
[~2024-06-17] MED LIST changes: +ISOVUE-370 76% 100ML VIAL As Ordered ONE
== END ==
LOC: M RAD 09:59
PROVIDERS: ATTEND Family Medicine
DX: R91.1 Solitary pulmonary nodule (principal)
CPT/HCPCS: 71260; Q9967

== ENCOUNTER → 2024-08-31 | Outpatient (CLI) | payer MEDICARE, OTHER ==
[~2024-08-31] MED LIST changes: +ECOT81TA5 PO; +EZET10TA21 PO; -ISOVUE-370 76% 100ML VIAL As Ordered ONE; -PRAV40TA2 PO; +PRAV40TA85 PO; +TORS10TA3 PO
[2024-08-31 11:21] LABS: ALT/SGPT 18.0 U/L (7.0-40); AST/SGOT 24.0 U/L (<34); CALCIUM LEVEL 9.2 MG/DL (8.3-10.6); CARBON DIOXIDE LEVEL 26.0 MMOL/L (20-31); CHLORIDE LEVEL 107.0 MMOL/L (98-107); CREATININE FOR GFR 1.17 MG/DL (0.70-1.30); GLOMERULAR FILTRATION RATE 65.8 (>42); POTASSIUM SERUM 4.4 MMOL/L (3.5-5.1); SODIUM LEVEL 142.0 MMOL/L (136-145)
== END ==
LOC: M PLALAB 07:32
PROVIDERS: ATTEND Family Medicine
DX: I50.32 Chronic diastolic (congestive) heart failure (principal)

== ENCOUNTER → 2024-09-28 | Outpatient (CLI) | payer MEDICARE, OTHER ==
[2024-09-28 11:37] LABS: BASO # 0.1 10^3/uL (0.0-0.2); BASO % 1.5 % (0.0-1.0); EOS # 0.3 10^3/uL (0.0-0.5); EOS % 5.3 % (0.0-3.0); LYMPH # 1.3 10^3/uL (1.5-5.0); LYMPH % 24.7 % (24.0-44.0); MONO # 0.7 10^3/uL (0.0-0.8); MONO % 12.2 % (2.0-8.0); NEUTROPHILS # 3.0 10^3/uL (1.5-8.5); NEUTROPHILS % 55.9 % (36.0-66.0); PLATELET COUNT, AUTOMATED 169 10^3/uL (150-450)
[2024-09-28 11:53] LABS: ESTIMATED AVERAGE GLUCOSE 128.0 MG/DL (60-110)
[2024-09-28 12:13] LABS: ALT/SGPT 26.0 U/L (7.0-40); AST/SGOT 30.0 U/L (<34); CALCIUM LEVEL 9.2 MG/DL (8.3-10.6); CARBON DIOXIDE LEVEL 25.0 MMOL/L (20-31); CHLORIDE LEVEL 104.0 MMOL/L (98-107); CHOLESTEROL LEVEL 92.0 MG/DL (<200); CHOLESTEROL RISK RATIO 2.58 (<5); CREATININE FOR GFR 1.38 MG/DL (0.70-1.30); GLOMERULAR FILTRATION RATE 54.0 (>42); LDL CHOLESTEROL 35.4 MG/DL (<100); MAGNESIUM LEVEL 2.0 MG/DL (1.8-2.4); NON-HDL-C 56.4 MG/DL; POTASSIUM SERUM 4.4 MMOL/L (3.5-5.1); PSA SCREENING 0.2 NG/ML (< 4.00); PTH INTACT 41.6 PG/ML (18.5-88.0); SODIUM LEVEL 138.0 MMOL/L (136-145); TOTAL 25(OH) VITAMIN D 32.2 NG/ML (20.0-100.0); TRIGLYCERIDES LEVEL 105.0 MG/DL (<150)
[2024-09-28 12:14] LABS: FREE T4 1.27 NG/DL (0.89-1.76)
[2024-09-28 12:15] LABS: VITAMIN B12 LEVEL 344.0 PG/ML (211-911)
[2024-09-29 14:47] LABS: FREE KAPPA LIGHT CHAINS SERUM 54.4 mg/L (3.3-19.4); FREE LAMBDA LIGHT CHAINS SERUM 32.3 mg/L (5.7-26.3); KAPPA/LAMBDA RATIO SERUM 1.68 (0.26-1.65)
[2024-10-01 06:03] LABS: FREE KAPPA LIGHT CHAINS URINE 170.13 mg/L (<=32.90); FREE LAMBDA LIGHT CHAINS URINE 23.72 mg/L (<=3.79); KAPPA/LAMBDA RATIO URINE 7.17 (<=8.69)
== END ==
LOC: M PLALAB 07:27
PROVIDERS: ATTEND Family Medicine
DX: I50.32 Chronic diastolic (congestive) heart failure (principal); D50.9 Iron deficiency anemia, unspecified; E53.8 Deficiency of other specified B group vitamins; K74.00 Hepatic fibrosis, unspecified; E55.9 Vitamin D deficiency, unspecified; E78.2 Mixed hyperlipidemia; Z12.5 Encounter for screening for malignant neoplasm of prostate; Z79.899 Other long term (current) drug therapy
CPT/HCPCS: 36415; 80053; 80061; 81517; 82306; 82607; 82728; 83036; 83521; 83735; 83880; 83970; 84439; 84443; 85025; G0103